=== PATIENT | male | born 1950 | race Caucasian/White ===

== ENCOUNTER → 2020-11-02 13:50 | Outpatient (BNVA) | payer MEDICARE, OTHER, SELFPAY | PROVIDERS: Family Provider Nurse Practitioner Family; PCP Nurse Practitioner Family; Visit Provider Nurse Practitioner Family | DX: Z20.828 Contact with and (suspected) exposure to other viral communicable diseases (principal) | CPT/HCPCS: 87635 ==

== ENCOUNTER 2022-02-05 12:02 | Outpatient (CLI) | payer OTHER, SELFPAY ==
--- NOTE | 2022-02-05 12:46 | CT_ITS ---
WS: [id number] CT ABDOMEN AND PELVIS WITH CONTRAST HISTORY: ELEVATED PSA LEVEL TECHNIQUE: Imaging performed of the abdomen and pelvis with IV contrast. Single phase imaging of the abdomen. Coronal and sagittal reformats are submitted. All CT scans at [facility] use at [address] one of these dose optimization techniques: automated exposure control; mA and/or kV adjustment per patient size (includes targeted exams where dose is matched to clinical indication); or iterative re construction. IV CONTRAST: Omnipaque 300; 95 mL IV. Oral contrast: Yes. DLP: 1178.99 mGy.cm COMPARISON: 06/27/2011 Lower thorax: Peripheral pulmonary fibrotic changes at the lung bases. Early changes of mild honeycom feliciano are noted at the RIGHT lung base. Heart is normal size. Small hiatal hernia. Liver/biliary system: Normal size with no intrahepatic dilatation. Gallbladder: Normal. No gallstones or wall thickening. No pericholecystic fluid. Pancreas: Normal size pancreas and pancreatic duct. No adjacent inflammation. Spleen: Normal size spleen. No mass or infarct. Adrenal glands: Normal. Right kidney: Normal size RIGHT kidney. 3 mm cortical hypodensity in the mid kidney. This is too smal l to characterize. No obstruction. Left kidney: Normal. Aorta: Mild atherosclerosis with no aneurysm. 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 Root measures 11 mm. This was probably some on the prior study from 2010 but better seen today due to the IV contrast. Celiac axis is patent. No rmal SMA a. Normal renal arteries. Lymphadenopathy: None. Free fluid: None. GI tract: Normally distended stomach. No small bowel obstruction. Mild diffuse constipation. The appe ndix is normal. Abdominal wall: Fat containing umbilical hernia. Pelvis: Urinary bladder is moderately distended. Prostate gland is enlarged and heterogeneous and lob ulated encroaching into the urinary bladder. Prostate extends over length of 5.[address] 6.1 x 5.7 cm. There is contiguous enlargement also into the adjacent seminal vesicles. There is m ild thickening along the posterior urinary bladder wall which may be the prostate gland encroaching i nto the bladder. No adjacent lymph nodes. Bones: Unremarkable. CT/CT abdomen pelvis w con* [id number] IMPRESSION: 1. Enlarged heterogeneous prostate gland with extension into the urinary bladd er and seminal vesicles. Prostate measures 6.1 x 5.7 cm and extends over length of 5.7 cm. 2. Normal appendix. 3. Pulmonary fibrosis with honeycombing at the lung bases. 4. Mild aneurysmal dilatation proximal celiac axis. Stable since 2010. 5. No adenopathy or ascites.
[2022-02-05] MEDS: iohexol 300 mg/mL 50 mL Btl PO (12:58)
[2022-02-05] MEDS: iohexol 300 mg/mL 100 mL Btl IV (14:18)
== END 2022-02-05 12:03 | disposition home or self-care (01) ==
LOC: RAD 12:06
PROVIDERS: PCP Nurse Practitioner Family; Visit Provider Nurse Practitioner
DX: Z01.89 Encounter for other specified special examinations (principal); R97.20 Elevated prostate specific antigen [PSA]; N40.0 Benign prostatic hyperplasia without lower urinary tract symptoms; J84.10 Pulmonary fibrosis, unspecified
CPT/HCPCS: 74177

== ENCOUNTER 2022-03-15 09:00 | Outpatient (CLI) | payer OTHER, SELFPAY ==
--- NOTE | 2022-03-15 09:31 | NM_ITS ---
WS: [id number] NUCLEAR MEDICINE WHOLE BODY BONE SCAN HISTORY: PROSTATE CANCER/ PSA ELEVATION COMPARISON: Thoracic spine radiographs. TECHNIQUE: The patient was injected with 24.3 mCi of Technetium 99m HDP and serial whole-body scintig billy have been performed with anterior and posterior images. Focal area of moderately increased uptake in the posterior medial RIGHT 10th rib. There is additional very slight increased uptake within what is probably the seventh rib posterior medial and the sevent h vertebral body. No additional rib or spine lesions. Mild osteoarthritic changes at the shoulder joints, AC joints, elbow joints and RIGHT foot. Normal so ft tissue uptake. Kidneys are both identified. NM/NM bone scan whole body* [id number] IMPRESSION: 1. There is focal uptake within the RIGHT posterior medial seventh and 10th ri bs and within the seventh vertebral body. Suspicious for prostate metastatic di sease. No abnormality could be identified on the radiograph of the thoracic spi ne obtained on the same day. 2. Normal soft tissue and renal uptake.
--- NOTE | 2022-03-15 11:27 | XR_ITS ---
WS: [id number] THORACIC SPINE TECHNIQUE: AP and lateral views are performed. HISTORY: BONE SCAN COMPARISON, INCLUDE SOME OF THE RIBS COMPARISON: Review bone scan 03/15/2022. Diffuse osteopenia. No destructive bone lesions within the thoracic spine. No rib lesions are identif ied on this examination. There is severe bilateral pulmonary fibrosis with loss of lung volume. XR/XR thoracic spine 2V [id number] IMPRESSION: Osseous abnormalities seen on the recent bone scan are not apparent by radiogra ph.
== END 2022-03-15 09:01 | disposition home or self-care (01) ==
PROVIDERS: PCP Nurse Practitioner Family; Visit Provider Registered Nurse
DX: C61 Malignant neoplasm of prostate (principal)
CPT/HCPCS: 72070; 78306; A9561

== ENCOUNTER 2022-07-18 15:34 | Outpatient (CLI) | payer OTHER, SELFPAY ==
--- NOTE | 2022-07-18 15:42 | CT_ITS ---
WS: [id number] CT HEAD NONCONTRAST HISTORY: DOUBLE VISION/BLURRY VISION TECHNIQUE: Contiguous axial imaging performed through the brain in 2.5 mm imaging. Bone and soft tiss ue windows. Sagittal and coronal reformats reviewed. All CT scans at [facility] use at least one of these dose optimization techniques: automated exposure control; mA and/or kV adjustment per pa tient size (includes targeted exams where dose is matched to clinical indication); or iterative recon struction. DLP: 1142.53 mGy.cm COMPARISON: 10/08/2019 No acute intracranial hemorrhage, midline shift or mass effect. Mild atrophy and small vessel ischemic disease. Ventricles: Normal size with no hydrocephalus. No inferior displacement of cerebellar tonsils. Paranasal sinuses: As visualized are clear. Mastoid air cells: Well pneumatized. Calvarium and scalp: Skull is intact with no soft tissue edema or swelling. Atherosclerotic plaque through the intracranial carotid arteries. CT/CT head wo con* [id number] IMPRESSION: 1. Mild atrophy and small vessel ischemic disease. 2. No intracranial hemorrhage or mass effect. 3. Mild atherosclerotic changes in the intracranial carotid arteries.
== END 2022-07-18 15:35 | disposition home or self-care (01) ==
PROVIDERS: PCP Nurse Practitioner; Visit Provider Nurse Practitioner
DX: G31.9 Degenerative disease of nervous system, unspecified (principal); I65.23 Occlusion and stenosis of bilateral carotid arteries
CPT/HCPCS: 70450

== ENCOUNTER 2022-07-24 13:33 | Oncology outpatient (recurring) (ONCR) | payer OTHER, SELFPAY | END 2022-08-09 23:59 | disposition home or self-care (01) | PROVIDERS: PCP Nurse Practitioner; Visit Provider Internal Medicine Hematology & Oncology | DX: C61 Malignant neoplasm of prostate (principal); Z87.891 Personal history of nicotine dependence | CPT/HCPCS: 99204 ==

== ENCOUNTER 2022-08-28 12:46 | Oncology outpatient (recurring) (ONCR) | payer OTHER, SELFPAY ==
[2022-08-28 13:03] LABS: Basophils # 0.1 10^3/uL (0.0-0.1); Basophils % 0.6 %; Eosinophils # 0.1 10^3/uL (0.0-0.8); Eosinophils % 1.6 %; Hematocrit 45.9 % (42.0-52.0); Hemoglobin 15.7 g/dL (11.7-16.6); Lymphocytes # 2.5 10^3/uL (0.8-4.8); Lymphocytes % 27.7 %; Mean Corpuscular HGB Conc 34.2 g/dL (30.0-36.0); Mean Corpuscular Hemoglobin 30.7 pg (28.0-34.0); Mean Corpuscular Volume 89.8 fl (80-94); Mean Platelet Volume 9.4 fL (7.4-10.4); Monocytes # 0.5 10^3/uL (0.2-0.9); Monocytes % 5.2 %; Neutrophils # 5.81 10^3/uL (1.8-7.7); Neutrophils % 64.6 %; Nucleated Red Blood Cells % 0 %; Platelet Count 249 10^3/cmm (130-400); Red Blood Count 5.11 10^6/uL (4.1-5.3); Red Cell Distribution Width 11.9 % (12.1-15.1)
[2022-08-28 13:41] LABS: Albumin Level 4.1 g/dL (3.5-5.2); Anion Gap 15.4 (5-19); Blood Urea Nitrogen 19 mg/dL (8-23); Calcium 9.6 mg/dL (8.5-10.5); Carbon Dioxide 27 mmol/L (22-29); Osmolality Calculated 288 mOsm/kg (285-295); Potassium 4.4 mmol/L (3.5-5.1); Testosterone Total 295.7 ng/dL (193-740); Total Bilirubin 0.4 mg/dL (0.15-1.2); Total Protein 8.1 g/dL (6.6-8.7)
[2022-08-28 14:02] LABS: Alanine Aminotransferase < 5 U/L (0-41)
[2022-08-28 14:03] LABS: Alkaline Phosphatase 146 U/L (40-130); Aspartate Amino Transferase 13 U/L (0-40); Chloride 93 mmol/L (98-107); Glucose 352 mg/dL (65-115); Sodium 131 mmol/L (136-145)
== END 2022-09-09 23:59 | disposition home or self-care (01) ==
PROVIDERS: PCP Nurse Practitioner; Visit Provider Internal Medicine Hematology & Oncology
DX: C61 Malignant neoplasm of prostate (principal); J43.9 Emphysema, unspecified; C78.6 Secondary malignant neoplasm of retroperitoneum and peritoneum; C79.51 Secondary malignant neoplasm of bone; C78.7 Secondary malignant neoplasm of liver and intrahepatic bile duct; J84.10 Pulmonary fibrosis, unspecified; R59.0 Localized enlarged lymph nodes; Z79.52 Long term (current) use of systemic steroids; Z79.818 Long term (current) use of other agents affecting estrogen receptors and estrogen levels; Z79.899 Other long term (current) drug therapy; Z87.891 Personal history of nicotine dependence
CPT/HCPCS: 36415; 80053; 84153; 84403; 85025; 99214

== ENCOUNTER → 2022-09-10 10:43 | Outpatient (BNVA) | payer OTHER, SELFPAY | PROVIDERS: PCP Nurse Practitioner; Visit Provider Podiatrist Foot & Ankle Surgery | DX: E11.621 Type 2 diabetes mellitus with foot ulcer (principal); E11.8 Type 2 diabetes mellitus with unspecified complications; L97.524 Non-pressure chronic ulcer of other part of left foot with necrosis of bone; E11.42 Type 2 diabetes mellitus with diabetic polyneuropathy; L03.116 Cellulitis of left lower limb; S91.109A Unspecified open wound of unspecified toe(s) without damage to nail, initial encounter; X58.XXXA Exposure to other specified factors, initial encounter | CPT/HCPCS: 11044; 73630; 87070; 87075; 87077; 87186; 87205; 99205 ==

== ENCOUNTER 2022-09-10 11:41 | Inpatient (IN) | payer OTHER, MEDICARE, SELFPAY ==
[2022-09-10] VITALS (40 sets, daily range): BP systolic 89–148; BP diastolic 48–85; PULSE 90–150; RESP 7–29; TEMP 36.6–36.8; O2SAT 92–98; BMI 23.5
--- NOTE | 2022-09-10 12:54 | ECG_ITS ---
[facility] Test Date: 2022-09-10 Pat Name: Cristobal Rincon Department: Room: Gender: Male Material Handler: : [id number] Requested By: Mars Ashley Order Number: [id number] Guevara MD: Georgette Cochran M.D. Measurements Intervals [place] Rate: 130 P: 44 [place]: 172 QRS: 99 QRSD: 85 T: -5 QT: 284 QTc: 419 Interpretive Statements SINUS TACHYCARDIA BORDERLINE RIGHT AXIS DEVIATION [QRS AXIS > 90] NONSPECIFIC T-WAVE ABNORMALITY No previous ECG available for comparison Electronically Signed On 09-10-2022 21:46:08 CDT by Georgette Cochran M.D. [id number]
--- NOTE | 2022-09-10 13:03 | P.ANESASSM_ITS ---
Pre-Anesthetic Assessment Height/Weight: Height 1.85 m Weight 80.739 kg Temp Pulse Resp BP Pulse Ox O2 Del Method 97.9 F 150 H 20 H 148/85 94 09/10/22 11:52 09/10/22 11:52 09/10/22 11:52 09/10/22 11:52 09/10/22 11:52 09/10/22 11:52 Operation Date: 09/10/22 18:00 Proposed Procedures p Amputation Toe/s(Left) - Oswald Perkins DPM Familial anesthetic complications: NOne Was Beta Sanam taken within 24 hours: N/A Was Clonidine taken within 24 hours: N/A Last intake: Sausage McMuffin at 1000 Social No alcohol and No tobacco Exam alert, oriented x 3, clear to auscultation bilaterally and regular rate & rhythm Airway Mallampati: Class II Dentition: full Pulmonary hx pneumonia X2 Metabolic Diabetes Mellitus and Thyroid Disease [facility] [place] Prostate cancer Anesthetic Plan ASA status: 3 Anesthesia: MAC Risk of > 500 ml blood loss (7ml/kg in children): No Medications/Allergies Home Medications Medication Instructions Recorded Confirmed Last Taken Type levothyroxine 200 mcg capsule 200 mcg PO DAILY Jardiance 07/24/22 09/10/22 Unknown History abiraterone 250 mg tablet 250 mg PO DAILY #30 tabs 08/28/22 09/10/22 Unknown Rx empagliflozin 25 mg tablet 25 mg PO DAILY 08/28/22 09/10/22 Unknown History prednisone 5 mg tablet 5 mg PO BID #60 tabs 08/28/22 09/10/22 Unknown Rx Allergies Allergy/AdvReac Type Severity Reaction Status Date / Time No Known Allergies Allergy Verified 09/10/22 11:04 [facility] Anesthesia Medical History Prostate cancer Family History Mother Hypertension Father Dementia CAD (coronary artery disease) Cancer Prostate Hyperlipidemia Denies family history of Diabetes Clotting disorder Psychiatric illness Chronic kidney disease (CKD) Suicide Anesthesia complication Bleeding disorder Lung disease Stroke Social History Smoking and tobacco status: former smoker (smoked x 10 years) Alcohol intake: never Adopted: No Caregiver/support person: No Data Anesthesia Cardiac Studies: No Data to Display
--- NOTE | 2022-09-10 13:15 | XRR_ITS ---
PROCEDURE INFORMATION: Exam: XR Chest Exam date and time: 09/10/2022 1:21 PM Age: 72 years old Clinical indication: Shortness of breath; Additional info: Dyspnea TECHNIQUE: Imaging protocol: Radiologic exam of the chest. Views: 1 view. COMPARISON: NM bone scan whole body* [id number] 03/15/2022 9:31 AM FINDINGS: Lungs: Chronic appearing bilateral peripheral interstitial lung disease. Pleural spaces: No pleural effusion or pneumothorax. Heart/Mediastinum: The cardiac silhouette is not enlarged. The mediastinal contours are normal. Diaphragm: Mildly elevated right hemidiaphragm. Bones/joints: No acute osseous abnormality. XR/XR chest 1V portable [id number] IMPRESSION: Chronic appearing interstitial lung disease.
[2022-09-10 13:21] LABS: Basophils % 0.2 %; Hematocrit 41.2 % (42.0-52.0); Hemoglobin 14.2 g/dL (11.7-16.6); Lymphocytes # 0.5 10^3/uL (0.8-4.8); Lymphocytes % 3.9 %; Mean Corpuscular HGB Conc 34.5 g/dL (30.0-36.0); Mean Corpuscular Hemoglobin 30.3 pg (28.0-34.0); Mean Corpuscular Volume 87.8 fl (80-94); Mean Platelet Volume 10.7 fL (7.4-10.4); Monocytes # 0.5 10^3/uL (0.2-0.9); Monocytes % 4.3 %; Neutrophils # 11.56 10^3/uL (1.8-7.7); Neutrophils % 91.3 %; Nucleated Red Blood Cells % 0 %; Platelet Count 235 10^3/cmm (130-400); Red Blood Count 4.69 10^6/uL (4.1-5.3); Red Cell Distribution Width 12.6 % (12.1-15.1); White Blood Count 12.7 10^3/uL (4.0-10.0)
[2022-09-10 13:28] LABS: Erythrocyte Sedimentation Rate 33 mm/hr (0-10)
[2022-09-10 13:42] LABS: INR 1.22 (0.8-1.2)
[2022-09-10 13:43] LABS: Alanine Aminotransferase 12 U/L (0-41); Albumin Level 3.6 g/dL (3.5-5.2); Alkaline Phosphatase 147 U/L (40-130); Anion Gap 22.5 (5-19); Aspartate Amino Transferase 16 U/L (0-40); Blood Urea Nitrogen 20 mg/dL (8-23); Calcium 9.7 mg/dL (8.5-10.5); Carbon Dioxide 21 mmol/L (22-29); Chloride 91 mmol/L (98-107); Globulin 4.7 g/dL (1.3-4.6); Glucose 233 mg/dL (65-115); Osmolality Calculated 280 mOsm/kg (285-295); Potassium 4.5 mmol/L (3.5-5.1); Sodium 130 mmol/L (136-145); Total Bilirubin 0.9 mg/dL (0.15-1.2); Total Protein 8.3 g/dL (6.6-8.7)
[2022-09-10 13:43] LABS: Partial Thromboplastin Time 30.4 SECONDS (23.9-36.7)
[2022-09-10 14:01] LABS: Lactic Sepsis W/Reflex 2.6 mmol/L (0.5-2.2)
[2022-09-10] MEDS: SODIUM CHLORIDE 0.9% 2422.17 ML IV (14:01)
[2022-09-10] MEDS: vancomycin 1,000 MG in sodium chloride 0.9% 250 ML 250 MG IV (14:02)
--- NOTE | 2022-09-10 14:09 | W.ED.EXTPRO ---
HPI - Extremity Problem General: Chief complaint: Extremity Problem,Nontraumatic Stated complaint: Sent by , infection of great toe Time Seen by Provider: 09/10/22 12:36 Source: patient Mode of arrival: ambulatory History of Present Illness: 72-year-old male who was directed to the emergency room by Dr. Perkins at the podiatry clinic. He was seen for the first time today for a diabetic foot ulcer with a severely infected left great toe. On x-ray there is significant osteomyelitic damage of the distal phalanx at the DIP joint. Patient is tachycardic on arrival he denies any fever. The sore in his foot began within the last week. Dr. Perkins came and talk to me about this patient prior to the patient's arrival in the department stated that he plan to do an amputation of the left great toe this evening because the patient ate around 11:00 patient endorses the last meal time again to me. He has no known coronary artery disease he does have severe chronic respiratory disease is fibrotic lungs he relates it to being due to having pneumonia when he was younger twice. He has significant clubbing noted just on bedside visual exam. MD Complaint: extremity swelling Onset (ago): day(s) Pain Consistency: constant Location: left (Great toe) and toe Quality: aching Radiation: none Relieving factors: nothing Exacerbating factors: nothing Associated symptoms: Deny arthralgias, chest pain, fever(s), myalgias, rash or short of breath Review of Systems Const: Denies: fever(s) or chills ENMT: Denies: throat pain, ear or mastoid pain, nasal discharge or nasal congestion Card: Denies: chest pain, palpitations or irregular heart rhythm Resp: Denies: dyspnea, productive cough or non-productive cough GI: Denies: abdominal pain, nausea, vomiting, hematemesis, coffee ground emesis, diarrhea, constipation, bloating, hematochezia or melena : Denies: flank pain, dysuria, urinary frequency or urinary urgency Skin/Breast: Denies: rash PFSH ED PFSH: Medical History (Updated 09/10/22 @ 14:17 by Sergo Oshea DO) Diabetes Fatty liver Interstitial lung disease Prostate cancer Prostate cancer Surgical History (Updated 09/10/22 @ 14:12 by Sergo Oshea DO) Hx of tonsillectomy 1979 Family History Mother Hypertension Father Dementia CAD (coronary artery disease) Cancer Prostate Hyperlipidemia Denies family history of Diabetes Clotting disorder Psychiatric illness Chronic kidney disease (CKD) Suicide Anesthesia complication Bleeding disorder Lung disease Stroke Social History Smoking and tobacco status: former smoker (smoked x 10 years) Alcohol intake: never Adopted: No Caregiver/support person: No Physical Exam Const: GENERAL APPEARANCE: cooperative and comfortable ORIENTATION/CONSCIOUSNESS: Yes awake, Yes oriented to person, Yes oriented to place and Yes oriented to time HENMT: COMMON NORMALS: normocephalic, atraumatic and hearing grossly normal bilaterally HEAD & SCALP: normocephalic and atraumatic Resp: COMMON NORMALS: normal respiratory effort, No retractions, No use of accessory muscles and clear to auscultation bilaterally AUSCULTATION: clear to auscultation bilaterally Cardio: COMMON NORMALS: regular rate, regular rhythm and No murmurs present (Cardio) RATE: regular rate RHYTHM: regular rhythm GI: COMMON NORMALS: Soft to palpation and No hepatosplenomegaly present AUSCULTATION: Yes normoactive bowel sounds PALPATION: Yes Soft to palpation, No Tenderness to palpation present (GI), No Guarding due to palpation present (GI) and Yes No hepatosplenomegaly present Extremity: OTHER: Great toe inflamed and swollen very erythematous discolored gangrenous changes on the plantar aspect of the toe. There is scant drainage. There is lymphangitic erythematous spread to the forefoot overlying the first and second metatarsals and proximally up the anterior tibia. Neuro: SENSORIUM/ORIENTATION: Yes oriented to person, Yes oriented to place and Yes oriented to time Skin: COMMON NORMALS: no rashes or lesions noted GENERAL SKIN EXAM: no rashes or lesions noted Course Vital Signs: Vital signs: Vital Signs Temperature 97.9 F 09/10/22 11:52 Pulse Rate 150 H 09/10/22 11:52 Respiratory Rate 20 H 09/10/22 11:52 Blood Pressure 148/85 09/10/22 11:52 Pulse Oximetry 94 09/10/22 11:52 Oxygen Delivery Me thod 09/10/22 11:52 MDM - Extremity (Nontraumatic) Medical Decision Making X-ray shows osteomyelitic destruction of the great toe at the proximal aspect of the distal phalanx. Does not appear to be any subcuticular gas on the plain x-ray. COVID is somewhat difficult to tell. Radiology is not formally read the x-ray at this point. Patient does appear to be mildly septic he is tachycardic with a heart rate of 150s on arrival. He is given a fluid bolus started on vancomycin cultures been done he will be kept n.p.o. admitted to the ICU due to his tachycardia. Dr. Perkins is planning on doing surgery tentative discussed with Dr. Hills who will see the patient in the ICU and be the admitting. Medical Records I reviewed the patient's medical records. Lab Data I reviewed the patient's lab results. : 09/10/22 13:15 09/10/22 13:15 Radiology Impressions Chest X-Ray 09/10/22 13:15 IMPRESSION: Chronic appearing interstitial lung disease. Laboratory Results WBC 12.7 10^3/uL (4.0-10.0) H 09/10/22 13:15 RBC 4.69 10^6/uL (4.1-5.3) 09/10/22 13:15 Hgb 14.2 g/dL (11.7-16.6) 09/10/22 13:15 Hct 41.2 % (42.0-52.0) L 09/10/22 13:15 MCV 87.8 fl (80-94) 09/10/22 13:15 MCH 30.3 pg (28.0-34.0) 09/10/22 13:15 MCHC 34.5 g/dL (30.0-36.0) 09/10/22 13:15 RDW 12.6 % (12.1-15.1) 09/10/22 13:15 Plt Count 235 10^3/cmm (130-400) 09/10/22 13:15 MPV 10.7 fL (7.4-10.4) H 09/10/22 13:15 Neut % (Auto) 91.3 % 09/10/22 13:15 Lymph % (Auto) 3.9 % 09/10/22 13:15 Sawyer % (Auto) 4.3 % 09/10/22 13:15 Eos % (Auto) 0.0 % 09/10/22 13:15 Baso % (Auto) 0.2 % 09/10/22 13:15 Neut # (Auto) 11.56 10^3/uL (1.8-7.7) H 09/10/22 13:15 Lymph # (Auto) 0.5 10^3/uL (0.8-4.8) L 09/10/22 13:15 Sawyer # (Auto) 0.5 10^3/uL (0.2-0.9) 09/10/22 13:15 Eos # (Auto) 0.0 10^3/uL (0.0-0.8) 09/10/22 13:15 Baso # (Auto) 0.0 10^3/uL (0.0-0.1) 09/10/22 13:15 Nucleated RBC % (auto) 0 % 09/10/22 13:15 Nucleated RBCs # 0.0 /100WBC 09/10/22 13:15 ESR 33 mm/hr (0-10) H 09/10/22 13:15 PT 15.70 SECONDS (12.1-14.9) H 09/10/22 13:20 INR 1.22 (0.8-1.2) H 09/10/22 13:20 APTT 30.4 SECONDS (23.9-36.7) 09/10/22 13:20 Sodium 130 mmol/L (136-145) L 09/10/22 13:15 Potassium 4.5 mmol/L (3.5-5.1) 09/10/22 13:15 Chloride 91 mmol/L (98-107) L 09/10/22 13:15 Carbon Dioxide 21 mmol/L (22-29) L 09/10/22 13:15 Anion Gap 22.5 (5-19) H 09/10/22 13:15 BUN 20 mg/dL (8-23) 09/10/22 13:15 Creatinine 1.2 mg/dL (0.7-1.2) 09/10/22 13:15 GFR Calculation Not Reportable 09/10/22 13:15 Glucose 233 mg/dL (65-115) H 09/10/22 13:15 Calculated Osmolality 280 mOsm/kg (285-295) L 09/10/22 13:15 Lactic Acid 2.6 mmol/L (0.5-2.2) H 09/10/22 13:15 Calcium 9.7 mg/dL (8.5-10.5) 09/10/22 13:15 Total Bilirubin 0.9 mg/dL (0.15-1.2) 09/10/22 13:15 AST 16 U/L (0-40) 09/10/22 13:15 ALT 12 U/L (0-41) 09/10/22 13:15 Alkaline Phosphatase 147 U/L (40-130) H 09/10/22 13:15 C-Reactive Protein 257.0 mg/L (0.0-4.9) H 09/10/22 13:15 Total Protein 8.3 g/dL (6.6-8.7) 09/10/22 13:15 Albumin 3.6 g/dL (3.5-5.2) 09/10/22 13:15 Globulin 4.7 g/dL (1.3-4.6) H 09/10/22 13:15 Discharge Plan Discharge Patient Disposition: Admitted As Inpatient Clinical Impression: Non-pressure chronic ulcer of other part of left foot with necrosis of bone, Prostate cancer, Diabetic peripheral neuropathy associated with type 2 diabetes mellitus, Cellulitis of left foot, Osteomyelitis, Sepsis Condition: Stable Prescriptions: No Action levothyroxine 200 mcg capsule 200 mcg PO DAILY empagliflozin 25 mg tablet 25 mg PO DAILY Rx Instructions: Jariance abiraterone 250 mg tablet 250 mg PO DAILY Qty: 30 0RF Rx Instructions: must be taken on empty stomach, at least 1 hr before or 2 hrs after a meal/food prednisone 5 mg tablet 5 mg PO BID Qty: 60 0RF Referrals: Tomasa Brice FNP [Primary Care Provider] - Coding Level of Care Code ED Director Of Recreation Therapy for Shantell Pepe
[2022-09-10 15:07] LABS: Reflex Lactate Order REFLEX LACTIC ORDERD
[2022-09-10] MEDS: sodium chloride 0.9% 1,000 ML 75 ML IV (16:19)
--- NOTE | 2022-09-10 16:37 | P.HP_ITS ---
Providers/Chief Complaint Admitting Physician: Jose Jones MD Primary Care Provider: JOHANNA Westfall Chief Complaint: Sent by , infection of great toe History of Present Illness Cristobal Rincon is a 72 year old male with past medical history of type 2 diabetes mellitus, prostate cancer who was sent into the ER today to the podiatry office. After the patient history developed a callus on the right great toe around 4 months ago which has been getting worse gradually over a period of time but over the last 1 week has become more erythematous, painful with foul-smelling discharge. Denied any known fever but complaining of chills at home. At podiatry office there was a concern for possible osteomyelitis hence he was sent into the ER. ER course: In the ER he was found to have a heart rate of 150s for which she received 2-1/2 L of fluid as per sepsis protocol, IV vancomycin. After that he was admitted to ICU. On my examinations while seen in ICU patient's heart rate is running in 150s beats per minute, blood pressure 145/70 saturating well on room air, awake and alert. Complaining of toe pain but denies any other nausea vomiting, headache, dizziness, chest pain. Review of Systems General: Reports: 10 or more systems reviewed and unremarkable except in HPI and below Const: Denies: fever(s), chills, body aches, change in appetite, change in weight, malaise, night sweats, diaphoresis, change in sleep pattern, daytime sleepiness or snoring Eyes: Denies: change in vision, blurry vision, photophobia, eye discomfort or eye discharge ENMT: Denies: throat pain, enlarged tonsils, hoarseness, mouth pain, oral sores, dry mouth, tinnitus, nasal congestion or post nasal drip Card: Denies: chest pain, palpitations, irregular heart rhythm, edema, sw elling of feet/ankles, lightheadedness, syncope, pre-syncope, dyspnea on exertion, orthopnea, leg pain with exertion or acrocyanosis Resp: Denies: dyspnea, productive cough, non-productive cough, wheezing, stridor, pain on inspiration, change in phlegm color, hemoptysis or chest congestion GI: Denies: abdominal pain, nausea, vomiting, hematemesis, coffee ground emesis, dysphagia, heartburn, diarrhea, constipation, bloating, GI cramping, change in bowel habits, pain on defecation, hematochezia or melena : Denies: flank pain, difficulty urinating, dysuria, urinary frequency, urinary urgency, urinary hesitancy, urinary dribbling, difficulty starting urination, change in urine stream, nocturia or hematuria Musc: Denies: neck pain, back pain, extremity pain, joint pain, joint swelling, joint redness, joint stiffness or limited range of motion Neuro: Denies: headache(s), numbness in extremities, weakness in extremities, sensory changes, lack of coordination, difficulty walking, frequent falls, dizziness, vertigo, confusion, Slurred speech present, difficulty communicating thoughts or seizure-like activity Psych: Denies: anxiety, depression, mood swings, panic attacks, hopelessness or irritability Endo: Denies: polyuria, polydipsia, tired all the time, cold intolerance, exce ssive sweating, flushing or heat intolerance Jason/Lymph: Denies: easy bruising or easy bleeding All/Imm: Denies: tongue swelling, facial swelling or acute wheezing Medications/Allergies Home Medications Medication Instructions Recorded Confirmed Last Taken Type levothyroxine 200 mcg capsule 200 mcg PO DAILY Jardiance 07/24/22 09/10/22 09/10/22 History abiraterone 250 mg tablet 250 mg PO DAILY #30 tabs 08/28/22 09/10/22 Unknown Rx empagliflozin 25 mg tablet 25 mg PO DAILY 08/28/22 09/10/22 09/10/22 History prednisone 5 mg tablet 5 mg PO BID #60 tabs 08/28/22 09/10/22 Unknown Rx Allergies Allergy/AdvReac Type Severity Reaction Status Date / Time No Known Allergies Allergy Verified 09/10/22 11:04 PFSH Acute PFSH: Medical History (Updated 09/10/22 @ 16:42 by Jose Jones MD) Diabetes Diabetic peripheral neuropathy associated with type 2 diabetes mellitus Fatty liver Interstitial lung disease Non-pressure chronic ulcer of other part of left foot with necrosis of bone Prostate cancer Prostate cancer Surgical History (Updated 09/10/22 @ 14:12 by Sergo Oshea DO) Hx of tonsillectomy 1979 Family History Mother Hypertension Father Dementia CAD (coronary artery disease) Cancer Prostate Hyperlipidemia Denies family history of Diabetes Clotting disorder Psychiatric illness Chronic kidney disease (CKD) Suicide Anesthesia complication Bleeding disorder Lung disease Stroke Social History Smoking and tobacco status: former smoker (smoked x 10 years) Alcohol intake: never Adopted: No Caregiver/support person: No Vitals/I&O/Wt Last Vital Signs Temp 97.9 F 09/10/22 11:52 Pulse 101 H 09/10/22 15:58 Resp 16 09/10/22 15:58 BP 145/74 09/10/22 15:58 Pulse Ox 98 09/10/22 15:58 O2 Del Method 09/10/22 16:28 09/10/22 09/10/22 09/10/22 06:59 14:59 22:59 Intake Total 2672.17 / 2672.17 Balance 2672.17 / 2672.17 Weight last 48 hrs Weight 80.739 kg Weight 80.739 kg Physical Exam Narrative: General: No acute distress, AO x3 HEENT: PERRLA, pupils bilaterally equal and reactive Chest: Normal vesicular breath sounds, no added sounds, equal good air entry bilaterally CVS: S1-S2 regular, no murmurs, no tachycardia, no gallops, no rubs Abdomen: Soft, nontender, no organomegaly, bowel sounds present Neuro: No focal deficits, no facial deformity, AO x3, power 5/5 in all limbs Extremities: Full-thickness wound at plantar medial aspect of left great toe with probe to bone with erythema going up to mid foot, great toe is erythematous, swollen Data : 09/10/22 13:15 09/10/22 13:15 Micro: Microbiology 09/10/22 13:56 Blood Culture - Preliminary Blood SPECIMEN COLLECTED 09/10/22 13:51 Blood Culture - Preliminary Blood SPECIMEN COLLECTED A&P Assessment and plan (1) Sepsis: Secondary to cellulitis and osteomyelitis of foot and great toe. Ruled in for tachycardia, elevated lactate and leukocytosis on admission. Patient also found to have mild renal dysfunction with metabolic acidosis on admission Keep saturation over 90, mean arterial pressure over 65. Patient already received sepsis fluid bolus in the ER. For now continue with normal saline at 75 cc/h. Qualifiers: Sepsis type: sepsis due to unspecified organism Sepsis acute organ dysfunction status: without acute organ dysfunction Qualified Code(s): A41.9 - Sepsis, unspecified organism (2) Osteomyelitis: Followed up with manager process excellence as an outpatient. Plan for amputation in the evening today. For now check MRSA swab, blood culture. ESR elevated, CRP elevated. X-ray consistent with possible osteomyelitis of the left great toe. For now start on empiric antibiotics with vancomycin and Zosyn. Will de- escalate as per culture results. If bony edges are clean can plan to continue antibiotics for 24 hours post 4. Qualifiers: Osteomyelitis type: other acute Osteomyelitis location: other site Qualified Code(s): M86.18 - Other acute osteomyelitis, other site (3) Cellulitis of left foot: (4) Diabetes: Carb consistent diet once able to eat. Insulin sliding scale low-dose protocol. Qualifiers: Diabetes mellitus type: type 2 Diabetes mellitus ocean transportation intermediary insulin use: without ocean transportation intermediary use Diabetes mellitus complication status: with neurologic complications Diabetes mellitus complication detail: with polyneuropathy Qualified Code(s): E11.42 - Type 2 diabetes mellitus with diabetic polyneuropathy Plan Analgesia: Morphine as needed 1 mg per 4 hours Glycemic control: Insulin sliding scale, check A1c, Nutrition: Carb consistent diet CODE STATUS: Full code PUD prophylaxis: Famotidine for PUD prophylaxis DVT prophylaxis: SCDs on right leg for now. Discharge planning: Home with home health as per weightbearing recommendations from podiatry post OR Admit to CSU level. This documentation was created by [employer] lining brusher software. Every effort was made to ensure accuracy of lining brusher. Any obvious errors or omissions should be clarified with the author of the document. Attestations Medical Necessity Statement*: Admission for more than 2 midnights for management of sepsis of secondary to left great toe osteomyelitis, cellulitis Time Spent in Patient Care: Greater than 35 minutes Coding Level of Care Code Acute Flooring Machine Operator for [facility] Fwd Diagnoses Sepsis A41.9 Sepsis type: sepsis due to unspecified organism Sepsis acute organ dysfunction status: without acute organ dysfunction Osteomyelitis M86.18 Osteomyelitis type: other acute Osteomyelitis location: other site Cellulitis of left foot L03.116 Diabetes E11.42 Diabetes mellitus type: type 2 Diabetes mellitus ocean transportation intermediary insulin use: without retirement use Diabetes mellitus complication status: with neurologic complications Diabetes mellitus complication detail: with polyneuropathy
[2022-09-10] MEDS: famotidine 20 mg/2 mL INJ IVP (16:58)
[2022-09-10] MEDS: piperacillin-tazobactam 3.375 GM in sodium chloride 0.9% (plus) 50 ML IV (16:58)
[2022-09-10 17:16] LABS: Lactic Acid level (Lactate) 1.3 mmol/L (0.5-2.2)
[2022-09-10 17:23] LABS: Add Urine Microscopic? NO; Charge for UA Resulting for Rev
[2022-09-10 17:26] LABS: Procalcitonin 0.96 ng/mL (0-0.5); Thyroid Stimulating Hormone 0.17 uIU/mL (0.27-4.20)
[2022-09-10 17:31] LABS: Bilirubin Urine Neg (Negative); Blood Urine Neg (Negative); Glucose Urine UA 4+ (Normal); Ketones Urine 3+ (Negative); Leukocyte Esterase Urine Negative (Negative); Nitrate Urine Negative (Negative); Protein Urine Neg (Negative); Specific Gravity, Urine 1.015 (1.005-1.030); Urine Appearance Clear (CLEAR); Urine Color Yellow (Yellow); Urobilinogen Urine Norm (Negative); pH Urine 5 (5-7)
--- NOTE | 2022-09-10 17:44 | W.PM.OPSUD ---
Surgery/Procedure H&P Update DATE OF PROCEDURE: September 10, 2022 DATE H&P PERFORMED: 09/10/22 CHANGES TO PREVIOUS DOCUMENTATION: None PRIMARY INDICATION FOR PROCEDURE: Osteomyelitis left great toe, cellulitis, sepsis PLANNED PROCEDURE: Operation Date: 09/10/22 18:00 Proposed Procedures p Amputation Toe/s(Left) - Oswald Perkins DPM
[2022-09-10 17:46] LABS: Glucose Point of Care 162 mg/dL (70-110)
[2022-09-10 17:54] LABS: Folate Level 15.6 ng/mL (4.5-32.2)
--- NOTE | 2022-09-10 17:54 | PM.OP ---
Operative Report Date of procedure: September 10, 2022 Pre-op diagnosis: Osteomyelitis left hallux. Cellulitis left foot. Sepsis secondary to diabetic foot infection. Post-op diagnosis: Same Post-op findings: Devitalized soft tissue and bone left hallux distal phalanx. Procedure done: Left great toe amputation at metatarsal phalangeal joint. Implants: None Specimens removed/disposition: Bone, distal phalanx of the left great toe sent to microbiology for gram stain and culture. Pathology: Left great toe sent to pathology for permanent. Surgeon: Oswald Perkins D.P.M. Apartment Community Assistant Manager: Carin Estimated blood loss: 5 5 IV fluids: 0 Urine output: None Complications: None Findings: Devitalized tissue including bone distal phalanx left great toe. Brief History: 72-year-old male presents with a wound to the left great toe probes directly to bone that is devitalized.? Has cellulitis to the left foot.? Subjective chills and decreased appetite.? Patient is afebrile at 97.9 ?F oral temperature.? Elevated heart rate and elevated respiration. Met sepsis criteria and admitted to ICU. WBC 12.7, ESR 33, CRP 257.0 mg/L. Wound debridement Aerobic and anaerobic wound cultures taken postdebridement X-ray shows osteomyelitis distal phalanx left hallux Patient directed to the emergency department for hospital admission Recommend empiric IV antibiotics Plans for left hallux amputation today with Dr. Perkins Patient to be n.p.o. Reviewed clinical and radiographic as well as laboratory findings recommended amputation for source control of infection. Patient is agreeable and wishes to proceed. I reviewed at length with the patient, the risks, potential complications, benefits, alternatives, expectations, and typical outcomes associated with the surgery. The risks and potential complications were explained in detail, including but not limited to infection, wound dehiscence or soft tissue complications, bleeding and hematoma, chronic edema, neuritis or nerve damage producing numbness or chronic pain, CRPS, failure to relieve pain or worsening pain, thick / painful / unsightly scar, limited motion / stiffness, malposition, delayed union, malunion, or nonunion, fracture, reaction to implants, anesthetic complications, venous thromboembolism, and deformity recurrence. I discussed the notion of no regrets with the patient as it pertains to complications and outcomes. The patient seemed to understand the nature of the proposed care and required convalescence. They asked appropriate questions, answered to their satisfaction. They are aware no guarantees can be made as to a satisfactory outcome and they understand there may be other possible unforeseen complications or outcomes not listed here that will be treated accordingly if they arise. There were no written or implied guarantees given to the patient. They gave informed consent to proceed. Procedure: Under mild sedation the patient was brought to the operating room and remained on the gurney in supine position. A timeout was performed. Anesthesia was then administered by the anesthesia service. Local anesthesia was injected by myself consisting of 30 cc of 1% lidocaine plain in a left Macdonald block fashion. Well-padded pneumatic tourniquet applied to the left high calf. Left lower extremity was then scrubbed, prepped and draped utilizing normal aseptic technique. Left foot was then elevated in the calf and tourniquet was inflated to 250 mmHg. Attention was directed to the left hallux where a full-thickness wound at the plantar medial aspect of the left hallux it probe directly to bone with soft and devitalized, discolored distal phalanx of the left hallux appreciated. There was erythema circumferentially about the left hallux with edema, purulent drainage and proximal lymphangitic streaking with cellulitis to the level of the midfoot. Utilizing a #15 blade full-thickness down to bone a tennis racquet incision was performed circumferentially about the left first metatarsal phalangeal joint which was then disarticulated maintaining a both dorsal and plantar flap for possible delayed closure pending soft tissue improvement on IV antibiotics and need for further potential debridement. The left great toe was passed from the operative field. Distal phalanx bone culture was taken and sent to microbiology for gram stain, culture and sensitivity. Remaining left great toe was sent to pathology as a permanent specimen for gross. The incision was flushed with copious amounts of sterile saline solution. There is still erythema at the skin flaps. Decision was made to leave this open with saline wet-to-dry dressing changes which will be performed 3 times daily and monitor clinical response to empiric IV antibiotics, should he show soft tissue improvement will plan for delayed closure if indicated. Saline wet-to-dry dressing applied along with ABD pad, Kerlix and Coban. Tourniquet was deflated and a prompt hyperemic response was noted to the remaining distal digits of the left foot. Patient tolerated the procedure and anesthesia well and was transferred from the PACU to ICU with vital signs stable and vascular status intact.
--- NOTE | 2022-09-10 17:55 | PC.NURSE ---
1755 patient in care of Surgical staff. Vitals stable at time of transfer of care.
[2022-09-10] MEDS: lidocaine 1% INJ 50 mL 30 ML INJECTION (18:10)
[2022-09-10 18:41] LABS: Potassium, Radom Urine 27 mmol/L; Urine Random Chloride 46 mmol/L; Urine Random Sodium 59 mmol/L
[2022-09-10 18:47] LABS: Iron 15 ug/dL (59-158); Percent Saturation 8.1 % (20-50); Total Iron Binding Capacity 185 mcg/dl; Unsaturated Iron Binding 170 ug/dL (112-347); Vitamin B12 187 pg/mL (232-1245)
[2022-09-10 20:35] LABS: Glucose Point of Care 170 mg/dL (70-110)
[2022-09-10] MEDS: insulin lispro 100 unit/1 mL SUBCUT (20:40)
[2022-09-11] VITALS (16 sets, daily range): BP systolic 99–128; BP diastolic 51–81; PULSE 74–103; RESP 16–28; TEMP 36.6–37.1; O2SAT 93–97
[2022-09-11] MEDS: piperacillin-tazobactam 3.375 GM in sodium chloride 0.9% (plus) 50 ML IV ×3 (00:48→16:17)
[2022-09-11] MEDS: famotidine 20 mg/2 mL INJ IVP ×2 (03:32→16:17)
[2022-09-11] MEDS: sodium chloride 0.9% 1,000 ML 75 ML IV (03:33)
[2022-09-11 04:08] LABS: Basophils % 0.4 %; Eosinophils # 0.1 10^3/uL (0.0-0.8); Eosinophils % 0.8 %; Hematocrit 36.3 % (42.0-52.0); Hemoglobin 11.7 g/dL (11.7-16.6); Lymphocytes # 1.2 10^3/uL (0.8-4.8); Lymphocytes % 16.3 %; Mean Corpuscular HGB Conc 32.2 g/dL (30.0-36.0); Mean Corpuscular Hemoglobin 29.5 pg (28.0-34.0); Mean Corpuscular Volume 91.4 fl (80-94); Mean Platelet Volume 8.8 fL (7.4-10.4); Monocytes # 0.7 10^3/uL (0.2-0.9); Monocytes % 8.9 %; Neutrophils # 5.42 10^3/uL (1.8-7.7); Neutrophils % 73.2 %; Nucleated Red Blood Cells % 0 %; Platelet Count 167 10^3/cmm (130-400); Red Blood Count 3.97 10^6/uL (4.1-5.3); Red Cell Distribution Width 11.9 % (12.1-15.1); White Blood Count 7.4 10^3/uL (4.0-10.0)
[2022-09-11 04:22] LABS: Estmated Average Glucose 229; Hemoglobin A1C 9.6 % (4.0-6.0)
[2022-09-11 05:14] LABS: Alanine Aminotransferase 9 U/L (0-41); Albumin Level 2.8 g/dL (3.5-5.2); Alkaline Phosphatase 101 U/L (40-130); Aspartate Amino Transferase 13 U/L (0-40); Blood Urea Nitrogen 17 mg/dL (8-23); Calcium 8.8 mg/dL (8.5-10.5); Carbon Dioxide 20 mmol/L (22-29); Chloride 100 mmol/L (98-107); Chol HDL Ratio 4.33 mg/dL (1.0-5.00); Cholesterol 117 mg/dL (0-200); Globulin 3.5 g/dL (1.3-4.6); Glucose 114 mg/dL (65-115); HDL Cholesterol 27 mg/dL (60-100); LDL Cholesterol Calculated 66 mg/dL (50-129); Magnesium 1.9 mg/dL (1.7-2.3); Osmolality Calculated 282 mOsm/kg (285-295); Phosphorus 2.7 mg/dL (2.5-4.5); Sodium 135 mmol/L (136-145); Total Bilirubin 0.4 mg/dL (0.15-1.2); Total Protein 6.3 g/dL (6.6-8.7); Triglycerides 120 mg/dL (0-150); VLDL Cholestrol Calculation 24 mg/dL (0-30)
[2022-09-11] MEDS: vancomycin 1,250 MG/250 ML PIGGYBACK 250 MG IV ×2 (05:24→23:52)
--- NOTE | 2022-09-11 06:15 | PM.PN ---
Subjective Subjective: Patient seen bedside this a.m., he is 1 day status post left hallux amputation secondary to osteomyelitis. Denies any acute events overnight. Patient denies any subjective nausea, vomiting, fever, chills, shortness of breath or chest pain. Vitals/I&O/Wt Last Vital Signs Temp 98.7 F 09/11/22 04:00 Pulse 103 H 09/11/22 04:00 Resp 22 H 09/11/22 04:00 BP 115/55 09/11/22 04:00 Pulse Ox 97 09/11/22 04:00 O2 Del Method 09/11/22 01:00 09/10/22 09/10/22 09/11/22 14:59 22:59 06:59 Intake Total 2722.17 / 2722.17 1892.5 / 4614.67 Output Total 600 / 600 700 / 1300 Balance 2122.17 / 2122.17 1192.5 / 3314.67 Weight last 48 hrs Weight 181 lb 3 oz Weight 178 lb Weight 178 lb Physical Exam Narrative: GENERAL: Patient is alert and oriented ?3 and in no acute distress.? The following is a focused bilateral lower extremity exam.? Patient accompanied by his .? Wearing cowboy boots. VASCULAR: Dorsalis pedis palpable, posterior tibial arteries palpable bilaterally.? Sluggish capillary refill greater than 5 seconds to the left great toe.? Decreased pedal hair growth.? Edema to the left hallux. NEUROLOGICAL: Protective sensation diminished. DERMATOLOGICAL: Some improvement cellulitis/erythema to the dorsum of the left foot. Skin flaps at left hallux amputation site still have significant erythema and leading edge has rincon dusky appearance. No purulence. First metatarsal head exposed appears to be viable. MUSCULOSKELETAL: No pain with palpation secondary to neuropathy at the left great toe.? No soft tissue crepitus to the left great toe. Data : 09/11/22 03:55 09/11/22 03:55 Micro: Microbiology 09/10/22 13:56 Blood Culture - Preliminary Blood SPECIMEN COLLECTED 09/10/22 13:51 Blood Culture - Preliminary Blood SPECIMEN COLLECTED A&P Assessment and plan (1) Osteomyelitis: Qualifiers: Osteomyelitis location: other site Osteomyelitis type: other acute Qualified Code(s): M86.18 - Other acute osteomyelitis, other site (2) Sepsis: Qualifiers: Sepsis acute organ dysfunction status: without acute organ dysfunction Sepsis type: sepsis due to unspecified organism Qualified Code(s): A41.9 - Sepsis, unspecified organism (3) Cellulitis of left foot: (4) Non-pressure chronic ulcer of other part of left foot with necrosis of bone: (5) Diabetic peripheral neuropathy associated with type 2 diabetes mellitus: Plan 72-year-old diabetic male with osteomyelitis left hallux, cellulitis, admitted to the hospital for sepsis, IV antibiotics and surgical intervention. Left hallux amputation performed 09/10/2022 Wound left open due to amount of erythema at amputation level Saline wet-to-dry dressing changes 3 times daily Will monitor soft tissue response over the next few days, should soft tissue quality improve will plan for primary delayed closure this 09/13/2022 Cultures taken prior to initiating antibiotics and sent to microbiology for gram stain and culture this was done in clinic, additional cultures of bone taken intraoperatively Recommend continuing empiric IV antibiotics, may narrow once cultures yield further information Nonweightbearing left foot, may heel touch for transfers Elevate left foot Podiatry will follow Attestations Medical Necessity Statement*: Osteomyelitis left hallux, cellulitis left lower extremity, sepsis Coding Level of Care Code Acute News Operations Manager for [facility] Diagnoses Osteomyelitis M86.18 Osteomyelitis location: other site Osteomyelitis type: other acute Sepsis A41.9 Sepsis acute organ dysfunction status: without acute organ dysfunction Sepsis type: sepsis due to unspecified organism Cellulitis of left foot L03.116 Non-pressure chronic ulcer of other part of left foot with necrosis of bone L97.524 Diabetic peripheral neuropathy associated with type 2 diabetes mellitus E11.42
[2022-09-11 07:44] LABS: Glucose Point of Care 103 mg/dL (70-110)
[2022-09-11] MEDS: levothyroxine 200 mcg Tablet PO (07:56)
[2022-09-11] MEDS: ferrous gluconate 324 mg Tablet PO ×2 (07:56→16:17)
--- NOTE | 2022-09-11 10:39 | PC.CHAP ---
Pastoral Care Encounter/Spiritual Assessment Type of Contact [] Declined ribbon blockmaker visit [] Patient/Family/Request visit [] Outpatient visit [] Follow-up visit [] Physician referral [] Code/Alert [x] Routine visit [] Staff referral [] Actively dying [x] Patient sleeping [] Family support [] [] Out of room [] Palliative care [] [] Receiving care in room [] Pre-surgical visit [] Trauma [] Long length of stay [x] ICU visit [] Other: Relational/Emotional Strength [] Patient feels connected with others/family/visitors/staff [] Distress [] Loneliness/isolation [] Abandonment Spirituality of Patient [] Person of Nicole [] Attends Jewish of their Nicole [] Believes in Prayer [] Reads Bible or Sabianism materials [] There are Spiritual issues to be addressed [employer] Interventions [x] Prayer [] Active listening [] Non-anxious presence [] Spiritual/emotional support [] Crisis/trauma care [] Spiritual counseling [] Bereavement support [] Provided bereavement packet [] Provided Bible/devotional materials [] Provided toy/stuffed animal, coloring book to patient or family member [] Provided Communion [] Anointing/[place] [] Salvation [x] Completed spiritual assessment [] Other: Impact on Illness or Injury [] Angry [] Fearful [] Anxious [] Often cries [] Exhaustion [] Unable to work [] Unable to attend episcopal [] Unable to walk/stand [] Unable to read [] Unable to drive [] Unable to eat/drink [] Unable to sleep [] Unable to be with family [] Patient intubated [] Other: Summary Time spent with patient
[2022-09-11 10:55] LABS: Free T4 Free Thyroxine 1.32 ng/dL (0.82-1.77); T3 Free 1.2 PG/ML (2.0-4.4)
[2022-09-11 11:35] LABS: Glucose Point of Care 135 mg/dL (70-110)
--- NOTE | 2022-09-11 11:57 | P.PN_ITS ---
Subjective Subjective: No acute events overnight. Patient underwent amputation yesterday evening. Continues to remain on room air. Earlier today morning had soft blood pressures but MAP maintained over 65. Currently blood pressure is better. Vitals/I&O/Wt Last Vital Signs Temp 98.7 F 09/11/22 04:00 Pulse 90 09/11/22 10:00 Resp 21 H 09/11/22 10:00 BP 113/70 09/11/22 10:00 Pulse Ox 95 09/11/22 10:00 O2 Del Method 09/11/22 10:00 09/10/22 09/11/22 09/11/22 22:59 06:59 14:59 Intake Total 2722.17 / 2722.17 1892.5 / 4614.67 220 / 220 Output Total 600 / 600 700 / 1300 400 / 400 Balance 2121.17 / 2121. 1192.5 / 3314.67 -180 / -180 Weight last 48 hrs Weight 82.185 kg Weight 80.739 kg Weight 80.739 kg Physical Exam Narrative: General: No acute distress, AO x3 HEENT: PERRLA, pupils bilaterally equal and reactive Chest: Normal vesicular breath sounds, no added sounds, equal good air entry bilaterally CVS: S1-S2 regular, no murmurs, no tachycardia, no gallops, no rubs Abdomen: Soft, nontender, no organomegaly, bowel sounds present Neuro: No focal deficits, no facial deformity, AO x3, power 5/5 in all limbs Extremities: Left foot surgically bandaged no soakage. Data : 09/11/22 03:55 09/11/22 03:55 Micro: Microbiology 09/10/22 17:16 Bacterial Antigens - Final Urine Kidney 09/10/22 13:56 Blood Culture - Preliminary Blood SPECIMEN COLLECTED 09/10/22 13:51 Blood Culture - Preliminary Blood SPECIMEN COLLECTED A&P Assessment and plan (1) Sepsis: Secondary to cellulitis and osteomyelitis of foot and great toe. Ruled in for tachycardia, elevated lactate and leukocytosis on admission. Patient also found to have mild renal dysfunction with metabolic acidosis on admission Keep saturation over 90, mean arterial pressure over 65. Patient eating well. Stop IV fluids. Qualifiers: Sepsis acute organ dysfunction status: without acute organ dysfunction Sepsis type: sepsis due to unspecified organism Qualified Code(s): A41.9 - Sepsis, unspecified organism (2) Osteomyelitis: Followed up with accreditation coordinator as an outpatient. Plan for amputation in the evening today. Follow-up blood cultures. MRSA pending. Post amputation day 1. Plan for delayed closure on 09/13. Appreciate podiatry recommendations. For now continue with empiric antibiotics with vancomycin and Zosyn. Will de- escalate as per culture results. Qualifiers: Osteomyelitis location: other site Osteomyelitis type: other acute Qualified Code(s): M86.18 - Other acute osteomyelitis, other site (3) Cellulitis of left foot: (4) Diabetes: Carb consistent diet once able to eat. Insulin sliding scale low-dose protocol. A1c more than 9. Will discuss with family regarding insulin as an outpatient. Qualifiers: Diabetes mellitus type: type 2 Diabetes mellitus terminal supervisor insulin use: without terminal supervisor use Diabetes mellitus complication status: with neurologic complications Diabetes mellitus complication detail: with polyneuropathy Qualified Code(s): E11.42 - Type 2 diabetes mellitus with diabetic polyneuropathy Plan Hypothyroidism: As per charted feels patient takes levothyroxine 200 mcg oral daily. TSH low. Check free T3 and free T4. We will adjust the dose accordingly. As per MAR patient is also on prednisone 5 mg twice daily. Unknown cause. Will confirm with the patient. Hold off for now. Analgesia: Morphine as needed 1 mg per 4 hours Glycemic control: Insulin sliding scale. A1c more than 9. Nutrition: Carb consistent diet CODE STATUS: Full code PUD prophylaxis: Famotidine for PUD prophylaxis DVT prophylaxis: SCDs on right leg for now. Discharge planning: Home with home health as per weightbearing recommendations from podiatry post OR Transfer to [facility]. This documentation was created by [employer] corn cutter software. Every effort was made to ensure accuracy of corn cutter. Any obvious errors or omissions should be clarified with the author of the document. Attestations Medical Necessity Statement*: Requires further hospitalization for postoperative care, post amputation for osteomyelitis while patient awaits delayed secondary closure of the wound Time Spent in Patient Care: Greater than 35 minutes Coding Level of Care Code Acute Music Store Manager for [facility] Fwd Diagnoses Sepsis A41.9 Sepsis acute organ dysfunction status: without acute organ dysfunction Sepsis type: sepsis due to unspecified organism Osteomyelitis M86.18 Osteomyelitis location: other site Osteomyelitis type: other acute Cellulitis of left foot L03.116 Diabetes E11.42 Diabetes mellitus type: type 2 Diabetes mellitus chcf insulin use: without chcf use Diabetes mellitus complication status: with neurologic complications Diabetes mellitus complication detail: with polyneuropathy
--- NOTE | 2022-09-11 13:46 | PC.NURSE ---
Patient successfully transferred to second floor room 261. Patient resting in bed with belongings at bedside. Patient chart left with staff at credit front office developer.
[2022-09-11 17:11] LABS: Glucose Point of Care 160 mg/dL (70-110)
--- NOTE | 2022-09-11 19:32 | PC.NURSE ---
BEDSIDE REPORT TAKEN FROM [facility]. PATIENT A&O, VSS. VISITORS AT BEDSIDE AT TIME OF REPORT. PATIENT HAD NO FURTHER NEEDS AT THIS TIME.
[2022-09-11 20:45] LABS: Glucose Point of Care 130 mg/dL (70-110)
--- NOTE | 2022-09-11 20:50 | PC.NURSE ---
WET-TO-DRY DRESSING CHANGE PERFORMED ON LEFT AMPUTATED TOE.
[2022-09-12] VITALS (8 sets, daily range): BP systolic 111–124; BP diastolic 65–73; PULSE 82–87; RESP 16–18; TEMP 36.4–36.8; O2SAT 94–97
--- NOTE | 2022-09-12 00:05 | PC.NURSE ---
IV IN LEFT AC INFILTRATED. NEW 20 GAUGE IV STARTED IN LEFT FOREARM. SITE PATENT AND ASYMPTOMATIC.
[2022-09-12] MEDS: piperacillin-tazobactam 3.375 GM in sodium chloride 0.9% (plus) 50 ML IV ×3 (01:11→17:09)
[2022-09-12 05:03] LABS: Basophils % 0.6 %; Eosinophils # 0.3 10^3/uL (0.0-0.8); Eosinophils % 4.4 %; Hemoglobin 12.5 g/dL (11.7-16.6); Lymphocytes % 29.2 %; Mean Corpuscular HGB Conc 32.1 g/dL (30.0-36.0); Mean Corpuscular Hemoglobin 28.7 pg (28.0-34.0); Mean Corpuscular Volume 89.4 fl (80-94); Mean Platelet Volume 9.2 fL (7.4-10.4); Monocytes # 0.6 10^3/uL (0.2-0.9); Monocytes % 8.2 %; Neutrophils # 3.88 10^3/uL (1.8-7.7); Neutrophils % 57.2 %; Nucleated Red Blood Cells % 0 %; Platelet Count 197 10^3/cmm (130-400); Red Blood Count 4.36 10^6/uL (4.1-5.3); Red Cell Distribution Width 11.9 % (12.1-15.1); White Blood Count 6.8 10^3/uL (4.0-10.0)
[2022-09-12] MEDS: famotidine 20 mg/2 mL INJ IVP ×2 (05:06→17:08)
[2022-09-12 05:21] LABS: Alanine Aminotransferase 13 U/L (0-41); Alkaline Phosphatase 104 U/L (40-130); Anion Gap 15.2 (5-19); Aspartate Amino Transferase 19 U/L (0-40); Blood Urea Nitrogen 15 mg/dL (8-23); Calcium 8.7 mg/dL (8.5-10.5); Carbon Dioxide 21 mmol/L (22-29); Chloride 101 mmol/L (98-107); Globulin 3.6 g/dL (1.3-4.6); Glucose 118 mg/dL (65-115); Osmolality Calculated 278 mOsm/kg (285-295); Potassium 4.2 mmol/L (3.5-5.1); Sodium 133 mmol/L (136-145); Total Bilirubin 0.3 mg/dL (0.15-1.2); Total Protein 6.6 g/dL (6.6-8.7)
[2022-09-12 06:18] LABS: Glucose Point of Care 163 mg/dL (70-110)
--- NOTE | 2022-09-12 07:22 | P.PN_ITS ---
Subjective Subjective: Patient seen bedside this morning, transition to [facility] from ICU doing well. Denies any acute events overnight. Denies any left foot pain. Patient denies any subjective nausea, vomiting, fever, chills, shortness of breath or chest pain. Vitals/I&O/Wt Last Vital Signs Temp 97.9 F 09/12/22 04:00 Pulse 82 09/12/22 04:00 Resp 18 09/12/22 04:00 BP 117/71 09/12/22 04:00 Pulse Ox 95 09/12/22 04:00 O2 Del Method 09/11/22 19:56 09/11/22 09/12/22 09/12/22 22:59 06:59 14:59 Intake Total 300 / 806 1150 / 1956 Output Total 300 / 950 1450 / 2400 Balance 0 / -144 -300 / -444 Weight last 48 hrs Weight 178 lb Weight 181 lb Weight 181 lb 3 oz Weight 178 lb Weight 178 lb Physical Exam Narrative: GENERAL: Patient is alert and oriented ?3 and in no acute distress.? The following is a focused bilateral lower extremity exam.? Patient accompanied by his .? Wearing cowboy boots. VASCULAR: Dorsalis pedis palpable, posterior tibial arteries palpable bilaterally.? Sluggish capillary refill greater than 5 seconds to the left great toe.? Decreased pedal hair growth.? Edema to the left hallux. NEUROLOGICAL: Protective sensation diminished. DERMATOLOGICAL: Continued improvement to soft tissue at the left great toe amputation site, decreased erythema appreciated. No purulent drainage. Bleeding at skin edges appreciated. No pedrito purulence. Fibrotic tissue at 6:00 portion of the wound. MUSCULOSKELETAL: No pain with palpation secondary to neuropathy at the left great toe.? No soft tissue crepitus to the left great toe. Data : 09/12/22 04:39 09/12/22 04:39 Micro: Microbiology 09/10/22 17:16 MRSA Culture - Final Nose 09/10/22 18:17 Gram Stain - Final Toe - #1 09/10/22 13:56 Blood Culture - Preliminary Blood NEGATIVE TO DATE 09/10/22 13:51 Blood Culture - Preliminary Blood NEGATIVE TO DATE 09/10/22 17:16 Bacterial Antigens - Final Urine Kidney A&P Assessment and plan (1) Osteomyelitis: Qualifiers: Osteomyelitis location: other site Osteomyelitis type: other acute Qualified Code(s): M86.18 - Other acute osteomyelitis, other site (2) Sepsis: Qualifiers: Sepsis acute organ dysfunction status: without acute organ dysfunction Sepsis type: sepsis due to unspecified organism Qualified Code(s): A41.9 - Sepsis, unspecified organism (3) Cellulitis of left foot: (4) Non-pressure chronic ulcer of other part of left foot with necrosis of bone: (5) Diabetic peripheral neuropathy associated with type 2 diabetes mellitus: Plan 72-year-old diabetic male with osteomyelitis left hallux, cellulitis, admitted to the hospital for sepsis, IV antibiotics and surgical intervention. * Left hallux amputation performed 09/10/2022 * Primary delayed closure scheduled tomorrow morning 7 AM 09/13/2022 * N.p.o. at midnight * Continue empiric antibiotics, awaiting culture results * Plan for 2 weeks of oral antibiotics on discharge * Likely discharge tomorrow after delayed closure 09/13/2022 * Heel touch only for transfers at the left lower extremity with Darco OrthoWedge heel * Will follow-up in podiatry clinic next week Attestations Medical Necessity Statement*: Diabetic foot infection Coding Level of Care Code Acute Checkering Machine Operator for [facility] Fw Diagnoses Osteomyelitis M86.18 Osteomyelitis location: other site Osteomyelitis type: other acute Sepsis A41.9 Sepsis acute organ dysfunction status: without acute organ dysfunction Sepsis type: sepsis due to unspecified organism Cellulitis of left foot L03.116 Non-pressure chronic ulcer of other part of left foot with necrosis of bone L97.524 Diabetic peripheral neuropathy associated with type 2 diabetes mellitus E11.42
[2022-09-12] MEDS: levothyroxine 200 mcg Tablet PO (08:49)
[2022-09-12] MEDS: ferrous gluconate 324 mg Tablet PO ×2 (08:49→17:08)
[2022-09-12] MEDS: insulin lispro 100 unit/1 mL SUBCUT ×2 (08:51→12:11)
[2022-09-12 10:54] LABS: Glucose Point of Care 216 mg/dL (70-110)
--- NOTE | 2022-09-12 11:55 | P.PN_ITS ---
Subjective Subjective: No acute events overnight. Dressing changed by podiatry. Seen on [facility] floor today. Denies any new complaints. Has remained hemodynamically stable and afebrile. Vitals/I&O/Wt Last Vital Signs Temp 97.6 F 09/12/22 11:24 Pulse 87 09/12/22 11:24 Resp 16 09/12/22 11:24 BP 119/68 09/12/22 11:24 Pulse Ox 94 09/12/22 11:24 O2 Del Method 09/12/22 11:24 09/11/22 09/12/22 09/12/22 22:59 06:59 14:59 Intake Total 300 / 806 1150 / 1956 120 / 120 Output Total 300 / 950 1450 / 2400 300 / 300 Balance 0 / -144 -300 / -444 -180 / -180 Weight last 48 hrs Weight 80.739 kg Weight 82.1 kg Weight 82.185 kg Weight 80.739 kg Physical Exam Narrative: General: No acute distress, AO x3 HEENT: PERRLA, pupils bilaterally equal and reactive Chest: Normal vesicular breath sounds, no added sounds, equal good air entry bilaterally CVS: S1-S2 regular, no murmurs, no tachycardia, no gallops, no rubs Abdomen: Soft, nontender, no organomegaly, bowel sounds present Neuro: No focal deficits, no facial deformity, AO x3, power 5/5 in all limbs Extremities: Left foot surgically bandaged no soakage. Data : 09/12/22 04:39 09/12/22 04:39 Micro: Microbiology 09/10/22 18:17 Gram Stain - Final Toe - #1 Tissue Culture - Preliminary 09/10/22 17:16 MRSA Culture - Final Nose 09/10/22 13:56 Blood Culture - Preliminary Blood NEGATIVE TO DATE 09/10/22 13:51 Blood Culture - Preliminary Blood NEGATIVE TO DATE 09/10/22 17:16 Bacterial Antigens - Final Urine Kidney A&P Assessment and plan (1) Sepsis: Secondary to cellulitis and osteomyelitis of foot and great toe. Ruled in for tachycardia, elevated lactate and leukocytosis on admission. Patient also found to have mild renal dysfunction with metabolic acidosis on admission Keep saturation over 90, mean arterial pressure over 65. Patient eating well. Stop IV fluids. Qualifiers: Sepsis acute organ dysfunction status: without acute organ dysfunction Sepsis type: sepsis due to unspecified organism Qualified Code(s): A41.9 - Sepsis, unspecified organism (2) Osteomyelitis: Postoperative day 2. Plan for delayed closure tomorrow. MRSA negative. Outpatient wound cultures growing gram-negative rods. Continue with Zosyn. Stop vancomycin. Plan to de-escalate antibiotics once sensitivities speciation awaited. Plan to discharge on oral antibiotics for next 2 weeks. Qualifiers: Osteomyelitis location: other site Osteomyelitis type: other acute Qualified Code(s): M86.18 - Other acute osteomyelitis, other site (3) Cellulitis of left foot: (4) Diabetes: Carb consistent diet once able to eat. Insulin sliding scale low-dose protocol. A1c more than 9. Will discuss with family regarding insulin as an outpatient. Qualifiers: Diabetes mellitus type: type 2 Diabetes mellitus terminal makeup operator insulin use: without terminal makeup operator use Diabetes mellitus complication status: with neurologic complications Diabetes mellitus complication detail: with polyneuropathy Qualified Code(s): E11.42 - Type 2 diabetes mellitus with diabetic polyneuropathy Plan Hypothyroidism: As per charted feels patient takes levothyroxine 200 mcg oral daily. TSH low. T4 within normal limits, T3 on the lower side. Continue with current dose. As per MAR patient is also on prednisone 5 mg twice daily. Started by oncology. Patient has not received or started the medication yet. Analgesia: Morphine as needed 1 mg per 4 hours Glycemic control: Insulin sliding scale. A1c more than 9. Nutrition: Carb consistent diet CODE STATUS: Full code PUD prophylaxis: Famotidine for PUD prophylaxis DVT prophylaxis: SCDs on right leg for now. Discharge planning: Home with home health as per weightbearing recommendations from podiatry post OR Transfer to [facility]. This documentation was created by [employer] superintendent fish hatchery software. Every effort was made to ensure accuracy of superintendent fish hatchery. Any obvious errors or omissions should be clarified with the author of the document. Attestations Medical Necessity Statement*: Requires further hospitalization for management of osteomyelitis, cellulitis of left great toe while he awaits secondary closure post amputation Time Spent in Patient Care: Greater than 35 minutes Coding Level of Care Code Acute Cotton Stomper for [facility] Fwd Diagnoses Sepsis A41.9 Sepsis acute organ dysfunction status: without acute organ dysfunction Sepsis type: sepsis due to unspecified organism Osteomyelitis M86.18 Osteomyelitis location: other site Osteomyelitis type: other acute Cellulitis of left foot L03.116 Diabetes E11.42 Diabetes mellitus type: type 2 Diabetes mellitus fdc insulin use: without fdc use Diabetes mellitus complication status: with neurologic complications Diabetes mellitus complication detail: with polyneuropathy
[2022-09-12 17:04] LABS: Glucose Point of Care 141 mg/dL (70-110)
[2022-09-12 20:49] LABS: Glucose Point of Care 225 mg/dL (70-110)
[2022-09-13] VITALS (13 sets, daily range): BP systolic 100–129; BP diastolic 58–79; PULSE 73–92; RESP 14–20; TEMP 36.4–36.8; O2SAT 94–98
[2022-09-13] MEDS: piperacillin-tazobactam 3.375 GM in sodium chloride 0.9% (plus) 50 ML IV ×2 (00:53→07:57)
[2022-09-13] MEDS: famotidine 20 mg/2 mL INJ IVP (04:00)
[2022-09-13 05:10] LABS: Basophils % 0.4 %; Eosinophils # 0.4 10^3/uL (0.0-0.8); Eosinophils % 5.2 %; Hematocrit 38.6 % (42.0-52.0); Hemoglobin 12.8 g/dL (11.7-16.6); Lymphocytes # 2.1 10^3/uL (0.8-4.8); Lymphocytes % 28.8 %; Mean Corpuscular HGB Conc 33.2 g/dL (30.0-36.0); Mean Corpuscular Hemoglobin 29.8 pg (28.0-34.0); Mean Corpuscular Volume 89.8 fl (80-94); Monocytes # 0.6 10^3/uL (0.2-0.9); Monocytes % 7.7 %; Neutrophils # 4.18 10^3/uL (1.8-7.7); Neutrophils % 57.5 %; Nucleated Red Blood Cells % 0 %; Platelet Count 218 10^3/cmm (130-400); Red Cell Distribution Width 11.9 % (12.1-15.1); White Blood Count 7.3 10^3/uL (4.0-10.0)
[2022-09-13 05:51] LABS: Alanine Aminotransferase 13 U/L (0-41); Albumin Level 2.9 g/dL (3.5-5.2); Alkaline Phosphatase 103 U/L (40-130); Anion Gap 14.9 (5-19); Aspartate Amino Transferase 15 U/L (0-40); Blood Urea Nitrogen 14 mg/dL (8-23); Carbon Dioxide 26 mmol/L (22-29); Chloride 102 mmol/L (98-107); Globulin 3.5 g/dL (1.3-4.6); Glucose 143 mg/dL (65-115); Osmolality Calculated 291 mOsm/kg (285-295); Potassium 3.9 mmol/L (3.5-5.1); Sodium 139 mmol/L (136-145); Total Bilirubin 0.2 mg/dL (0.15-1.2); Total Protein 6.4 g/dL (6.6-8.7)
[2022-09-13 06:46] LABS: Glucose Point of Care 134 mg/dL (70-110)
[2022-09-13] MEDS: ferrous gluconate 324 mg Tablet PO (07:57)
[2022-09-13] MEDS: levothyroxine 200 mcg Tablet PO (07:57)
[2022-09-13] MEDS: sodium chloride 0.9% 1,000 ML 30 ML IV (09:02)
--- NOTE | 2022-09-13 09:08 | ANES.PREANE2 ---
Pre-Anesthetic Assessment Height/Weight: Height 1.85 m Weight 80.739 kg Temp Pulse Resp BP Pulse Ox O2 Del Method 98.2 F 91 14 116/69 96 09/13/22 09:01 09/13/22 09:01 09/13/22 09:01 09/13/22 09:01 09/13/22 09:01 09/13/22 09:01 Operation Date: 09/10/22 18:00 Proposed Procedures p Amputation Toe/s(Left) - Oswald Perkins DPM Operation Date: 09/13/22 12:20 Proposed Procedures p Delayed Wound Closure Left Foot(Left) - Oswald Perkins DPM Familial anesthetic complications: None Was Beta Sanam taken within 24 hours: N/A Was Clonidine taken within 24 hours: N/A Last intake: Intake Last Liquid Date 09/12/22 Last Liquid Time 20:00 Last Solid Date 09/12/22 Last Solid Time 18:00 Social No alcohol and No tobacco Exam alert, oriented x 3, clear to auscultation bilaterally and regular rate & rhythm Airway Mallampati: Class IV Dentition: other (missing) Comments: Comments: small mouth opening Metabolic Diabetes Mellitus and Thyroid Disease Anesthetic Plan ASA status: 3 Anesthesia: MAC Risk of > 500 ml blood loss (7ml/kg in children): No Medications/Allergies Home Medications Medication Instructions Recorded Confirmed Last Taken Type levothyroxine 200 mcg capsule 200 mcg PO DAILY Jardiance 07/24/22 09/10/22 09/10/22 History abiraterone 250 mg tablet 250 mg PO DAILY #30 tabs 08/28/22 09/10/22 Unknown Rx empagliflozin 25 mg tablet 25 mg PO DAILY 08/28/22 09/10/22 09/10/22 History prednisone 5 mg tablet 5 mg PO BID #60 tabs 08/28/22 09/10/22 Unknown Rx Allergies Allergy/AdvReac Type Severity Reaction Status Date / Time No Known Allergies Allergy Verified 09/10/22 11:04 Current Medications Generic Name Dose Route Start Last Admin Trade Name Freq PRN Reason Stop Dose Admin Famotidine 20 mg 09/10/22 16:15 09/13/22 04:00 Famotidine 20 Mg/2 Ml Inj IVP 20 mg Q12H RAFIA Administration Ferrous Gluconate 324 mg 09/10/22 18:00 09/13/22 07:57 Ferrous Gluconate 324 Mg Tablet PO 324 mg BIDWM RAFIA Administration Piperacillin Sod/Tazobactam 50 mls @ 12.5 mls/hr 09/10/22 17:00 09/13/22 07:57 Sod 3.375 gm/ Sodium Chloride IV 12.5 mls/hr Q8H RAFIA Administration Sodium Chloride 1,000 mls @ 30 mls/hr 09/13/22 09:00 09/13/22 09:02 Sodium Chloride 0.9% IV 09/14/22 08:59 30 mls/hr .Q24H RAFIA Administration Insulin Human Lispro 0 unit 09/10/22 18:00 09/13/22 07:05 Insulin Lispro 100 Unit/1 Ml SUBCUT Not Given WM&BEDTIME RAFIA Protocol Levothyroxine Sodium 200 mcg 09/11/22 09:00 09/13/22 07:57 Levothyroxine 200 Mcg Tablet PO 200 mcg DAILY RAFIA Administration PFSH Anesthesia Medical History (Updated 09/11/22 @ 06:16 by Oswald Perkins DPM) Diabetes Diabetic peripheral neuropathy associated with type 2 diabetes mellitus Fatty liver Interstitial lung disease Non-pressure chronic ulcer of other part of left foot with necrosis of bone Prostate cancer Prostate cancer Surgical History (Updated 09/10/22 @ 14:12 by Sergo Oshea DO) Hx of tonsillectomy 1979 Family History Mother Hypertension Father Dementia CAD (coronary artery disease) Cancer Prostate Hyperlipidemia Denies family history of Diabetes Clotting disorder Psychiatric illness Chronic kidney disease (CKD) Suicide Anesthesia complication Bleeding disorder Lung disease Stroke Social History Smoking and tobacco status: former smoker (smoked x 10 years) Alcohol intake: never Adopted: No Caregiver/support person: No Data Anesthesia : 09/13/22 04:23 09/13/22 04:23 Short CBC 09/12/22 09/13/22 Range/Units 04:39 04:23 WBC 6.8 7.3 (4.0-10.0) 10^3/uL Hgb 12.5 12.8 (11.7-16.6) g/dL Hct 39.0 L 38.6 L (42.0-52.0) % MCV 89.4 89.8 (80-94) fl Plt Count 197 218 (130-400) 10^3/cmm Neut % (Auto) 57.2 57.5 % Neut # (Auto) 3.88 4.18 (1.8-7.7) 10^3/uL BMP 09/12/22 09/13/22 04:39 04:23 Sodium 133 L 139 Potassium 4.2 3.9 Chloride 101 102 Carbon Dioxide 21 L 26 BUN 15 14 Creatinine 0.8 0.8 Glucose 118 H 143 H Calcium 8.7 9.0 Liver Function 09/12/22 09/13/22 Range/Units 04:39 04:23 Total Bilirubin 0.3 0.2 (0.15-1.2) mg/dL AST 19 15 (0-40) U/L ALT 13 13 (0-41) U/L Alkaline Phosphatase 104 103 (40-130) U/L Albumin 3.0 L 2.9 L (3.5-5.2) g/dL Microbiology 09/10/22 18:17 Gram Stain - Final Toe - #1 Tissue Culture - Preliminary Cardiac Studies: No Data to Display
[2022-09-13] MEDS: lidocaine 1% INJ 20 mL SUBCUT (09:27)
--- NOTE | 2022-09-13 09:49 | W.PM.OPSUD ---
Surgery/Procedure H&P Update DATE OF PROCEDURE: September 13, 2022 DATE H&P PERFORMED: 09/10/22 CHANGES TO PREVIOUS DOCUMENTATION: none PLANNED PROCEDURE: Operation Date: 09/10/22 18:00 Proposed Procedures p Amputation Toe/s(Left) - Oswald Perkins DPM Operation Date: 09/13/22 12:20 Proposed Procedures p Delayed Wound Closure Left Foot(Left) - Oswald Perkins DPM
--- NOTE | 2022-09-13 09:49 | PM.OP ---
Operative Report Date of procedure: September 13, 2022 Pre-op diagnosis: Osteomyelitis left hallux. Cellulitis left foot. Sepsis secondary to diabetic foot infection.
--- NOTE | 2022-09-13 09:54 | P.OP_ITS ---
Operative Report Date of procedure: September 13, 2022 Pre-op diagnosis: Osteomyelitis left hallux. Cellulitis left foot. Sepsis secondary to diabetic foot infection. Post-op diagnosis: Same Post-op findings: Improved soft tissue quality postdebridement Procedure done: Primary delayed closure left foot. [id number] Implants: 3-0 Vicryl, 3-0 nylon, 4 nylon Specimens removed/disposition: None Pathology: None Surgeon: Oswald Perkins D.P.M. Tearer Press Clipping: Hailee Estimated blood loss: 5 No IV fluids: None Urine output: 0 Complications: None Findings: Improved soft tissue quality with bleeding skin margins postdebridement Brief History: Osteomyelitis, gangrene left great toe secondary to diabetic foot infection. Patient is status post left hallux amputation. Has underwent 3 times daily wet-to-dry dressing changes and has been on empiric IV antibiotics with improvement. Recommending further debridement with primary delayed closure to the left foot. Procedure: Under mild sedation the patient was brought to the operating room and remained on the gurney in supine position. A timeout was performed. Anesthesia was then administered by the anesthesia service. Local anesthesia was injected by myself consisting of 30 cc of one-to-one mixture 1% lidocaine and 0.25% Marcaine plain in a left Macdonald block fashion. Well-padded pneumatic tourniquet was applied to the left calf this was not inflated during the procedure. Left lower extremity was scrubbed, prepped and draped utilizing normal aseptic technique. Attention was directed to the left foot wound where dorsal and plantar flaps were inspected, these were debrided of devitalized epidermis, dermis and subcutaneous tissue, deep capsule and fascia were debrided sharply with brown pickups and #15 blade. All devitalized tissue was debrided and passed from operative field followed by irrigation with saline. The incision was then approximated for primary delayed closure utilizing 3-0 Vicryl at periosteum and subcutaneous tissue with skin reapproximated utilizing accommodation of 3-0 nylon and 4-0 nylon. The incision was then dressed with Adaptic, sterile 4 x 4, Kerlix and Jonathan wrap. Patient tolerated the procedure and anesthesia well and was transferred to the PACU with vital signs stable and vascular status intact. Following a period of postoperative monitoring he will be transferred back to the floor. He is to be nonweightbearing to the left lower extremity. May heel touch only for short transfers with a Darco OrthoWedge heel. He is advised to elevate his left foot at all times while resting. Okay for discharge from surgical standpoint, no further surgical intervention anticipated during this hospitalization. Recommend oral antibiotics at discharge for 14 days. Will need additional coverage for gram-negative's. Will discuss with hospitalist. Follow-up in podiatry clinic with Dr. Perkins next week He is to keep the postoperative dressing clean, dry and intact until his follow- up in clinic.
[2022-09-13 11:08] LABS: Glucose Point of Care 123 mg/dL (70-110)
--- NOTE | 2022-09-13 11:29 | P.DS_ITS ---
Discharge Providers Date of Admission: 09/10/22 16:38 Date of Discharge: September 13, 2022 Attending Provider at Admission: Jose Jones MD Attending Provider at Discharge: Jose Jones MD Consults: Podiatry: Dr. Perkins Primary Care Provider: JOHANNA Westfall Diagnoses at Discharge Discharge Diagnosis (1) Sepsis: Status: Acute Qualifiers: Sepsis acute organ dysfunction status: without acute organ dysfunction Sepsis type: sepsis due to unspecified organism Qualified Code(s): A41.9 - Sepsis, unspecified organism (2) Osteomyelitis: Status: Acute Qualifiers: Osteomyelitis location: other site Osteomyelitis type: other acute Qualified Code(s): M86.18 - Other acute osteomyelitis, other site (3) Cellulitis of left foot: Status: Acute (4) Diabetes: Status: Acute Qualifiers: Diabetes mellitus complication detail: with polyneuropathy Diabetes mellitus complication status: with neurologic complications Diabetes mellitus intermediate insulin use: without hospice chaplain use Diabetes mellitus type: type 2 Qualified Code(s): E11.42 - Type 2 diabetes mellitus with diabetic polyneuropathy Reason for Visit Reason for Visit: Sent by , infection of great toe Brief History: Cristobal Rincon is a 72 year old male with past medical history of type 2 diabetes mellitus, prostate cancer who was sent into the ER today to the podiatry office.? After the patient history developed a callus on the right great toe around 4 months ago which has been getting worse gradually over a period of time but over the last 1 week has become more erythematous, painful with foul- smelling discharge.? Denied any known fever but complaining of chills at home.? At podiatry office there was a concern for possible osteomyelitis hence he was sent into the ER. ER course: In the ER he was found to have a heart rate of 150s for which she received 2-1/2 L of fluid as per sepsis protocol, IV vancomycin.? After that he was admitted to ICU. On my examinations while seen in ICU patient's heart rate is running in 150s beats per minute, blood pressure 145/70 saturating well on room air, awake and alert.? Complaining of toe pain but denies any other nausea vomiting, headache, dizziness, chest pain. Hospital Course Hospital Course Patient was admitted to hospital further evaluation management secondary to sepsis from cellulitis/osteomyelitis. He was started on broad-spectrum antibiotics. Podiatry was consulted. He underwent left great toe amputation of metatarsophalangeal joint. Eventually his wound cultures grew E. coli. Antibiotics were transitioned as per culture sensitivities. He underwent delayed closure of the wound on 09/13. During hospitalization he was found to have uncontrolled type 2 diabetes mellitus with A1c of more than 9. Patient is advised for increased anti-diabetic medications or insulin use but he wants to talk to his primary care provider before doing any changes to his medications. Patient was advised to follow-up with his primary care provider at the earliest for better control of type 2 diabetes mellitus. He is been discharged in medically stable condition on oral Augmentin for 2 more weeks with advised to follow-up with his primary care provider and podiatry team within the next 1 week. He is advised to be nonweightbearing on the feet along with dressing as per podiatry team till he is seen again in the podiatry office. Physical Exam Narrative: General: No acute distress, AO x3 HEENT: PERRLA, pupils bilaterally equal and reactive Chest: Normal vesicular breath sounds, no added sounds, equal good air entry bilaterally CVS: S1-S2 regular, no murmurs, no tachycardia, no gallops, no rubs Abdomen: Soft, nontender, no organomegaly, bowel sounds present Neuro: No focal deficits, no facial deformity, AO x3, power 5/5 in all limbs Extremities: Left foot surgically bandaged no soakage. Discharge Data Studies Completed and Pending Completed Studies During Hospitalization Category Date Time Status XR chest 1V portable [id number] Stat Exams 09/10/22 13:15 Completed Pending at discharge Category Date Time Status Blood Culture Stat Lab 09/10/22 13:56 Results Tissue Culture and Gram Stain Routine Lab 09/10/22 18:17 Results Pathology: Surgical [PTH] Routine Pth 09/10/22 18:22 Received Radiology Impressions Chest X-Ray 09/10/22 13:15 IMPRESSION: Chronic appearing interstitial lung disease. Preliminary micro results at discharge 09/10/22 18:17 Tissue Culture - Preliminary Toe - #1 09/10/22 13:56 Blood Culture - Preliminary Blood NEGATIVE TO DATE 09/10/22 13:51 Blood Culture - Preliminary Blood NEGATIVE TO DATE Wound Culture Final 09/13/22-1120 Organism 1 Escherichia coli Growth MODERATE FEW MIXED SUPERFICIAL MARTY ON DAY 2 E coli M.I.C. RX --------- ------ * Amikacin <=16 S * Amoxicillin/Clavulanate <=8/4 S * Ampicillin <=8 S * Ampicillin/Sulbactam <=8/4 S * Aztreonam <=4 S * Cefepime <=8 S * Ceftriaxone <=1 S * Cefuroxime <=4 S * Ciprofloxacin >2 R * Gentamicin <=2 S * Imipenem <=1 S * Levofloxacin >4 R * Tetracycline <=4 S * Trimethoprim/Sulfamethoxazole <=2/38 S * Piperacillin/Tazobactam <=16 S Wound Culture Preliminary (changed) 09/12/22-1137 Organism 1 Gram Negative Rods Growth MODERATE Laboratory Results WBC 7.3 10^3/uL (4.0-10.0) 09/13/22 04:23 RBC 4.30 10^6/uL (4.1-5.3) 09/13/22 04:23 Hgb 12.8 g/dL (11.7-16.6) 09/13/22 04:23 Hct 38.6 % (42.0-52.0) L 09/13/22 04:23 MCV 89.8 fl (80-94) 09/13/22 04:23 MCH 29.8 pg (28.0-34.0) 09/13/22 04:23 MCHC 33.2 g/dL (30.0-36.0) 09/13/22 04:23 RDW 11.9 % (12.1-15.1) L 09/13/22 04:23 Plt Count 218 10^3/cmm (130-400) 09/13/22 04:23 MPV 9.0 fL (7.4-10.4) 09/13/22 04:23 Neut % (Auto) 57.5 % 09/13/22 04:23 Lymph % (Auto) 28.8 % 09/13/22 04:23 [place] % (Auto) 7.7 % 09/13/22 04:23 Eos % (Auto) 5.2 % 09/13/22 04:23 Baso % (Auto) 0.4 % 09/13/22 04:23 Neut # (Auto) 4.18 10^3/uL (1.8-7.7) 09/13/22 04:23 Lymph # (Auto) 2.1 10^3/uL (0.8-4.8) 09/13/22 04:23 [place] # (Auto) 0.6 10^3/uL (0.2-0.9) 09/13/22 04:23 Eos # (Auto) 0.4 10^3/uL (0.0-0.8) 09/13/22 04:23 Baso # (Auto) 0.0 10^3/uL (0.0-0.1) 09/13/22 04:23 Nucleated RBC % (auto) 0 % 09/13/22 04:23 Nucleated RBCs # 0.0 /100WBC 09/13/22 04:23 ESR 33 mm/hr (0-10) H 09/10/22 13:15 PT 15.70 SECONDS (12.1-14.9) H 09/10/22 13:20 INR 1.22 (0.8-1.2) H 09/10/22 13:20 APTT 30.4 SECONDS (23.9-36.7) 09/10/22 13:20 Sodium 139 mmol/L (136-145) 09/13/22 04:23 Potassium 3.9 mmol/L (3.5-5.1) 09/13/22 04:23 Chloride 102 mmol/L (98-107) 09/13/22 04:23 Carbon Dioxide 26 mmol/L (22-29) 09/13/22 04:23 Anion Gap 14.9 (5-19) 09/13/22 04:23 BUN 14 mg/dL (8-23) 09/13/22 04:23 Creatinine 0.8 mg/dL (0.7-1.2) 09/13/22 04:23 GFR Calculation Not Reportable 09/13/22 04:23 Glucose 143 mg/dL (65-115) H 09/13/22 04:23 POC Glucose 123 mg/dL (70-110) H 09/13/22 10:51 Estimat Average Glucose 229 09/11/22 03:55 Hemoglobin A1c 9.6 % (4.0-6.0) H 09/11/22 03:55 Calculated Osmolality 291 mOsm/kg (285-295) 09/13/22 04:23 Lactic Acid 2.6 mmol/L (0.5-2.2) H 09/10/22 13:15 Lactic Acid (Sepsis) 1.3 mmol/L (0.5-2.2) 09/10/22 16:24 Calcium 9.0 mg/dL (8.5-10.5) 09/13/22 04:23 Phosphorus 2.7 mg/dL (2.5-4.5) 09/11/22 03:55 Magnesium 1.9 mg/dL (1.7-2.3) 09/11/22 03:55 Iron 15 ug/dL (59-158) L 09/10/22 16:24 TIBC 185 mcg/dl 09/10/22 16:24 % Saturation 8.1 % (20-50) L 09/10/22 16:24 Unsat Iron Binding 170 ug/dL (112-347) 09/10/22 16:24 Total Bilirubin 0.2 mg/dL (0.15-1.2) 09/13/22 04:23 AST 15 U/L (0-40) 09/13/22 04:23 ALT 13 U/L (0-41) 09/13/22 04:23 Alkaline Phosphatase 103 U/L (40-130) 09/13/22 04:23 C-Reactive Protein 257.0 mg/L (0.0-4.9) H 09/10/22 13:15 Total Protein 6.4 g/dL (6.6-8.7) L 09/13/22 04:23 Albumin 2.9 g/dL (3.5-5.2) L 09/13/22 04:23 Globulin 3.5 g/dL (1.3-4.6) 09/13/22 04:23 Triglycerides 120 mg/dL (0-150) 09/11/22 03:55 Cholesterol 117 mg/dL (0-200) 09/11/22 03:55 LDL Cholesterol, Calc 66 mg/dL (50-129) 09/11/22 03:55 Total VLDL Cholesterol 24 mg/dL (0-30) 09/11/22 03:55 HDL Cholesterol 27 mg/dL (60-100) L 09/11/22 03:55 Cholesterol/HDL Ratio 4.33 mg/dL (1.0-5.00) 09/11/22 03:55 Vitamin B12 187 pg/mL (232-1245) L 09/10/22 16:24 Folate 15.6 ng/mL (4.5-32.2) 09/10/22 16:24 Procalcitonin 0.96 ng/mL (0-0.5) H 09/10/22 16:24 TSH 0.17 uIU/mL (0.27-4.20) L 09/10/22 16:24 TSH Cancelled 09/10/22 16:24 Free T4 1.32 ng/dL (0.82-1.77) 09/11/22 03:55 Free T3 1.2 PG/ML (2.0-4.4) L 09/11/22 03:55 Urine Color Yellow (Yellow) 09/10/22 17:16 Urine Appearance Clear (CLEAR) 09/10/22 17:16 Urine pH 5 (5-7) 09/10/22 17:16 Ur Specific [place] 1.015 (1.005-1.030) 09/10/22 17:16 Urine Protein Neg (Negative) 09/10/22 17:16 Urine Glucose (UA) 4+ (Normal) H 09/10/22 17:16 Urine Ketones 3+ (Negative) H 09/10/22 17:16 Urine Blood Neg (Negative) 09/10/22 17:16 Urine Nitrate Negative (Negative) 09/10/22 17:16 Urine Bilirubin Neg (Negative) 09/10/22 17:16 Urine Urobilinogen Norm mg/dL (Negative) 09/10/22 17:16 Ur Leukocyte Esterase Negative (Negative) 09/10/22 17:16 Ur Random Sodium 59 mmol/L 09/10/22 17:16 Ur Random Potassium 27 mmol/L 09/10/22 17:16 Ur Random Chloride 46 mmol/L 09/10/22 17:16 Vitals Last Vital Signs Temp 97.9 F 09/13/22 11:26 Pulse 73 09/13/22 11:26 Resp 16 09/13/22 11:26 BP 120/76 09/13/22 11:26 Pulse Ox 96 09/13/22 11:26 O2 Del Method 09/13/22 11:26 O2 Flow Rate 5 09/13/22 09:54 Discharge Plan Discharge Patient Disposition: Home Health Service Condition: Stable Prescriptions: New ferrous gluconate 324 mg (37.5 mg iron) Tablet 324 mg PO BIDWM 30 Days Qty: 60 0RF amoxicillin-pot clavulanate 875-125 mg tablet 1 tab PO Q12H 14 Days Qty: 28 0RF Continued levothyroxine 200 mcg capsule 200 mcg PO DAILY empagliflozin 25 mg tablet 25 mg PO DAILY Rx Instructions: Jariance abiraterone 250 mg tablet 250 mg PO DAILY Qty: 30 0RF Rx Instructions: must be taken on empty stomach, at least 1 hr before or 2 hrs after a meal/food prednisone 5 mg tablet 5 mg PO BID Qty: 60 0RF Discharge Orders: Discharge Order (Routine); Ordered 09/13/22 Ordered By: Jose Jones Referrals: [facility] [Outside] Oswald Perkins DPM [Physician] - 09/23/22 8:30 am Tomasa Brice FNP [Primary Care Provider] - 7-10 days (Office will call you with your appointment.) Discharge Diet: Cardiac and Diabetic Discharge Activity: Increase activity as tolerated and Limit activity as instructed Patient Instructions: Amoxicillin/Clavulanate Potassium (By mouth), Wound Infection (GEN), Opioid Safety Activity Restrictions/Additional Instructions: He is to be nonweightbearing to the left lower extremity.? May heel touch only f or short transfers with a [place] OrthoWedge heel. He is advised to elevate his left foot at all times while resting. Keep the postoperative dressing clean, dry and intact until his follow-up in clinic.? Discharge Attestations Time Spent in Discharge Care*: greater than 30 min Specific Discharge Activities: educating patient, discussing with pcp/other providers, discussing with major case detective/social workers/dc planners, documenting/other paperwork and evaluating patient/reviewing data Status at Discharge: Cognitive status at discharge: cognitively intact , Behavioral status at discharge: cooperative , Functional status at discharge: uses cane/walker , Overall status at discharge: patient is back to baseline Quality Metrics Clinical Quality Measures [ No reported AMI, CVA or VTE this stay] Coding Level of Care Code Acute Chg FW DC note History Comprehensive Exam Comprehensive Medical Decision Making High Complexity Diagnoses Sepsis A41.9 Sepsis acute organ dysfunction status: without acute organ dysfunction Sepsis type: sepsis due to unspecified organism Osteomyelitis M86.18 Osteomyelitis location: other site Osteomyelitis type: other acute Cellulitis of left foot L03.116 Diabetes E11.42 Diabetes mellitus complication detail: with polyneuropathy Diabetes mellitus complication status: with neurologic complications Diabetes mellitus hospice chaplain insulin use: without intermediate use Diabetes mellitus type: type 2
--- NOTE | 2022-09-13 12:06 | PC.SOCIAL ---
Imm update Imm updated with patient at bedside. Copy of page 2 provided. Patient verbalized understanding. Copy in chart initialed, dated and timed.
--- NOTE | 2022-09-13 15:10 | ANE.PACU2 ---
Inpatient post-anesthesia follow up: Airway intact: Yes Vital signs: Temperature 97.9 F Pulse Rate 78 Respiratory Rate 16 Blood Pressure 128/79 Pulse Oximetry 95 Oxygen Delivery Me thod Room Air Oxygen Flow Rate 5 Fraction of Inspir ed Oxygen Hydration adequate: Yes Nausea and vomiting: No Pain level: 1 Mental status: Baseline
== END 2022-09-13 13:00 | disposition home health service (06) | DRG 854 ==
LOC: ER 14:17 → ICU 14:54 → MEDSURG 09-11 13:43
PROVIDERS: Physician Assistant; Podiatrist Foot & Ankle Surgery; Admitting Provider Student in an Organized Health Care Education/Training Program; Emergency Provider Family Medicine; PCP Nurse Practitioner; Visit Provider Student in an Organized Health Care Education/Training Program
PROC: 0Y6Q0Z0 Detachment at Left 1st Toe, Complete, Open Approach (ICD-10-PCS; principal; 2022-09-10 18:00)
PROC: 0JDR0ZZ Extraction of Left Foot Subcutaneous Tissue and Fascia, Open Approach (ICD-10-PCS; CPT 13160; principal; 2022-09-13 12:10)
DX: A41.51 Sepsis due to Escherichia coli [E. coli] (principal); E87.20 Acidosis, unspecified; M86.172 Other acute osteomyelitis, left ankle and foot; J84.9 Interstitial pulmonary disease, unspecified; E11.69 Type 2 diabetes mellitus with other specified complication; L03.032 Cellulitis of left toe; E11.42 Type 2 diabetes mellitus with diabetic polyneuropathy; E11.65 Type 2 diabetes mellitus with hyperglycemia; E11.621 Type 2 diabetes mellitus with foot ulcer; L97.524 Non-pressure chronic ulcer of other part of left foot with necrosis of bone; N28.9 Disorder of kidney and ureter, unspecified; C61 Malignant neoplasm of prostate; E03.9 Hypothyroidism, unspecified; Z87.891 Personal history of nicotine dependence
CPT/HCPCS: 36415; 36416; 71045; 80053; 80061; 81003; 82436; 82607; 82746; 82962; 83036; 83540; 83550; 83605; 83735; 84100; 84133; 84145; 84300; 84439; 84443; 84481; 85025; 85610; 85651; 85730; 86140; 86403; 87040; 87070; 87176; 87205; 87641; 88305; 88311; 93005; 94664; 96365; 96372; 97760; 99285; J1815; J2543; J2704; J3010; J3370; J3490; J7030; J7050; L3260

== ENCOUNTER → 2022-09-10 11:45 | Outpatient (BNVA) | payer OTHER, SELFPAY | PROVIDERS: PCP Nurse Practitioner; Visit Provider Podiatrist Foot & Ankle Surgery | DX: Z01.89 Encounter for other specified special examinations (principal); E11.8 Type 2 diabetes mellitus with unspecified complications; L97.524 Non-pressure chronic ulcer of other part of left foot with necrosis of bone; E11.42 Type 2 diabetes mellitus with diabetic polyneuropathy; L03.116 Cellulitis of left lower limb | CPT/HCPCS: 87070; 87075; 87205 ==

== ENCOUNTER → 2022-09-17 14:38 | Outpatient (BNVA) | payer OTHER, SELFPAY | PROVIDERS: PCP Nurse Practitioner; Visit Provider Podiatrist Foot & Ankle Surgery | DX: Z89.412 Acquired absence of left great toe (principal); E11.621 Type 2 diabetes mellitus with foot ulcer; L97.529 Non-pressure chronic ulcer of other part of left foot with unspecified severity; E11.42 Type 2 diabetes mellitus with diabetic polyneuropathy | CPT/HCPCS: 99024; 99214 ==

== ENCOUNTER → 2022-09-23 08:29 | Outpatient (BNVA) | payer OTHER, SELFPAY | PROVIDERS: PCP Nurse Practitioner; Visit Provider Podiatrist Foot & Ankle Surgery | DX: E11.42 Type 2 diabetes mellitus with diabetic polyneuropathy (principal); Z89.412 Acquired absence of left great toe | CPT/HCPCS: 99213 ==

== ENCOUNTER → 2022-10-07 14:05 | Outpatient (BNVA) | payer OTHER, SELFPAY | PROVIDERS: PCP Nurse Practitioner; Visit Provider Podiatrist Foot & Ankle Surgery | DX: E11.42 Type 2 diabetes mellitus with diabetic polyneuropathy (principal); E11.621 Type 2 diabetes mellitus with foot ulcer; L97.522 Non-pressure chronic ulcer of other part of left foot with fat layer exposed; M86.9 Osteomyelitis, unspecified; Z89.412 Acquired absence of left great toe | CPT/HCPCS: 11042; 73630 ==

== ENCOUNTER → 2022-10-16 11:42 | Outpatient (BNVA) | payer OTHER, SELFPAY | PROVIDERS: PCP Nurse Practitioner; Visit Provider Nurse Practitioner | DX: C61 Malignant neoplasm of prostate (principal) | CPT/HCPCS: 99214 ==

== ENCOUNTER 2022-10-25 09:18 | Day surgery (SDC) | payer OTHER, SELFPAY ==
[2022-10-24 11:19] VITALS: BMI 23.7
[2022-10-25 10:30] VITALS: BP 131/82; PULSE 100; RESP 17; TEMP 36.4; O2SAT 92
[2022-10-25] MEDS: sodium chloride 0.9% 1,000 ML 30 ML IV (10:42)
--- NOTE | 2022-10-25 10:49 | ANES.PREANE2 ---
Pre-Anesthetic Assessment Height/Weight: Height 1.85 m Weight 81.647 kg Temp Pulse Resp BP Pulse Ox O2 Del Method 97.5 F L 100 17 131/82 92 10/25/22 10:30 10/25/22 10:30 10/25/22 10:30 10/25/22 10:30 10/25/22 10:30 10/25/22 10:30 Preop Diagnosis: Osteomyelitis left first metatarsal Operation Date: 10/25/22 11:05 Proposed Procedures p Incision and debridement down to bone left foot 37965,L97.524(Left) - Oswald Perkins DPM Familial anesthetic complications: None Was Beta Sanam taken within 24 hours: N/A Was Clonidine taken within 24 hours: N/A Last intake: Intake Last Liquid Date 10/24/22 Last Liquid Time 17:30 Last Solid Date 10/24/22 Last Solid Time 17:00 Social No alcohol and No tobacco Exam alert, oriented x 3, clear to auscultation bilaterally and regular rate & rhythm Airway Mallampati: Class III Dentition: other (missing) Metabolic Diabetes Mellitus and Thyroid Disease Anesthetic Plan ASA status: 3 Anesthesia: MAC Risk of > 500 ml blood loss (7ml/kg in children): No Medications/Allergies Home Medications Medication Instructions Recorded Confirmed Last Taken Type levothyroxine 200 mcg capsule 200 mcg PO DAILY 07/24/22 10/25/22 10/25/22 History abiraterone 250 mg tablet 250 mg PO DAILY #30 tabs 08/28/22 10/25/22 10/25/22 Rx empagliflozin 25 mg tablet 25 mg PO DAILY 08/28/22 10/24/22 10/24/22 History prednisone 5 mg tablet 5 mg PO BID #60 tabs 08/28/22 10/24/22 10/24/22 Rx glipizide 10 mg tablet 10 mg PO BID 10/21/22 10/24/22 10/24/22 History prochlorperazine maleate 10 mg 10 mg PO Q6H PRN nausea and 10/21/22 10/24/22 Unknown Rx tablet (Compazine) vomiting #30 tabs Allergies Allergy/AdvReac Type Severity Reaction Status Date / Time No Known Allergies Allergy Verified 10/25/22 10:26 Current Medications Generic Name Dose Route Start Last Admin Trade Name Freq PRN Reason Stop Dose Admin Sodium Chloride 1,000 mls @ 30 mls/hr 10/25/22 10:30 10/25/22 10:42 Sodium Chloride 0.9% IV 10/26/22 10:29 30 mls/hr .Q24H RAFIA Administration PFSH Anesthesia Medical History Diabetes Diabetic peripheral neuropathy associated with type 2 diabetes mellitus Fatty liver Interstitial lung disease Non-pressure chronic ulcer of other part of left foot with necrosis of bone Prostate cancer Prostate cancer Surgical History Hx of tonsillectomy 1979 Family History Mother Hypertension Father Dementia CAD (coronary artery disease) Cancer Prostate Hyperlipidemia Denies family history of Diabetes Clotting disorder Psychiatric illness Chronic kidney disease (CKD) Suicide Anesthesia complication Bleeding disorder Lung disease Stroke Social History Smoking and tobacco status: former smoker (smoked x 10 years) Alcohol intake: never Adopted: No Caregiver/support person: No Data Anesthesia Cardiac Studies: No Data to Display
[2022-10-25 10:54] LABS: Glucose Point of Care 129 mg/dL (70-110)
--- NOTE | 2022-10-25 11:07 | W.PM.OPSUD ---
Surgery/Procedure H&P Update DATE OF PROCEDURE: October 25, 2022 DATE H&P PERFORMED: 10/21/22 CHANGES TO PREVIOUS DOCUMENTATION: none PREOP DIAGNOSIS: Osteomyelitis left first metatarsal PLANNED PROCEDURE: Operation Date: 10/25/22 11:05 Proposed Procedures p Incision and debridement down to bone left foot 80999,V94.524(Left) - Oswald Perkins DPM
[2022-10-25] MEDS: clindamycin 600 MG/50 ML PREMIX 100 MG IV (11:17)
[2022-10-25] MEDS: lidocaine 2% INJ 20 mL INJECTION (11:36)
--- NOTE | 2022-10-25 11:50 | P.OP_ITS ---
Operative Report Date of procedure: October 25, 2022 Pre-op diagnosis: Preop Diagnosis Osteomyelitis left first metatarsal Post-op diagnosis: Osteomyelitis left first metatarsal Post-op findings: Devitalized bone left first metatarsal head Procedure done: Incision of bone cortex, left foot Implants: 3-0 Vicryl, 4-0 Vicryl, 4-0 nylon Specimens removed/disposition: Head of the left first metatarsal sent to microbiology for gram stain and culture. Pathology: None Surgeon: Oswald Perkins D.P.M. 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 Date of operation 09/10/2022 with primary delayed closure performed 09/13/2022. Dehiscence of the left hallux amputation stump with exposed first metatarsal head.? X-ray 3 views demonstrates erosive changes at the first metatarsal head consistent with osteomyelitis.? Recommended excision of first metatarsal head as well as sesamoids patient is agreeable we will proceed with this on 10/25/2022.? I reviewed at length with the patient, the risks, potential complications, benefits, alternatives, expectations, and typical outcomes associated with the surgery. The risks and potential complications were explained in detail, including but not limited to infection, wound dehiscence or soft tissue complications, bleeding and hematoma, chronic edema, neuritis or nerve damage producing numbness or chronic pain, CRPS, failure to relieve pain or worsening pain, thick / painful / unsightly scar, limited motion / stiffness, malposition, delayed union, malunion, or nonunion, fracture, reaction to implants, anesthetic complications, venous thromboembolism, and deformity recurrence.? I discussed the notion of no regrets with the patient as it pertains to complications and outcomes. The patient seemed to understand the nature of the proposed care and required convalescence. They asked appropriate questions, answered to their satisfaction. They are aware no guarantees can be made as to a satisfactory outcome and they understand there may be other possible unforeseen complications or outcomes not listed here that will be treated accordingly if they arise. There were no written or implied guarantees given to the patient. They gave informed consent to proceed. Excision of first metatarsal head, fibular and tibial sesamoid left foot planned on outpatient MAC anesthesia 10/25/2022. Procedure: Under mild sedation the patient was brought to the operating room and remained on the gurney in supine position. A timeout was performed. Anesthesia was then administered by the anesthesia service. Local anesthesia was injected by myself consisting of 20 cc of one-to-one mixture 0.25% Marcaine and 1% lidocaine plain in a left Macdonald block fashion. Well-padded pneumatic tourniquet was applied to the left ankle. The left lower extremity was then scrubbed, prepped and draped utilizing normal aseptic technique. No Esmarch bandage was utilized secondary to infection. The left ankle tourniquet was inflated to 250 mmHg. Attention was directed to the left foot where a sinus tract was appreciated that communicated directly to bone with exposed bone at the first metatarsal head, was able to visualize articular surface and devitalized cortex of the head of the first metatarsal left foot. A linear incision was made over the medial and distal aspect of the left first metatarsal. Incision was made through all layers of skin, subcutaneous tissue down the periosteum which was incised and reflected both dorsally and plantarly exposing the head of the left first metatarsal. There was devitalized bone with poor density and dusky rincon appearance with erosive changes at the dorsal medial aspect and dorsal central portion of the left first metatarsal bone which was curettaged and debrided. Decision was made to resect the distal portion of the first metatarsal at the metaphyseal diaphyseal flare which was done with osteotome and mallet. The incision was irrigated with copious amounts of sterile saline solution. The ti bial and fibular sesamoid which were in direct articulation of the first metatarsal head had a off white/yellow appearance, decision was made to excise both the tibial and fibular sesamoids sharply which were passed from the operative field. Further irrigation was performed. No further devitalized soft tissue was appreciated postdebridement. The wound was then closed in a layered fashion with periosteum reapproximated with 3-0 Vicryl, subcutaneous tissue was then reapproximated with 4-0 Vicryl and skin with nylon. The incision was well coapted with margins well approximated without tension. There was adequate soft tissue and viable margins appreciated on all layers. The incision was dressed with Adaptic, sterile 4 x 4's, Kerlix and Jonathan wrap followed by application of a OrthoWedge heel shoe to the left lower extremity. Tourniquet was deflated and a prompt hyperemic response was noted to the distal digits of the left foot. Patient tolerated the procedure and anesthesia well and was transferred to the PACU with vital signs stable and vascular status intact. Following a period of postoperative monitoring he will be discharged home on Bactrim DS to be taken twice daily. He is to elevate and rest his left foot. Was given at home care instructions as well as follow-up in podiatry clinic next week.
[2022-10-25 11:52] VITALS: BP 94/64; PULSE 88; RESP 18; TEMP 36.2; O2SAT 97
[2022-10-25 11:56] VITALS: BP 110/65; PULSE 91; RESP 18; O2SAT 97
[2022-10-25 12:00] VITALS: BP 96/68; PULSE 89; RESP 18; TEMP 36.8; O2SAT 95
[2022-10-25 12:05] VITALS: BP 106/69; PULSE 82; RESP 14; TEMP 36.7; O2SAT 96
[2022-10-25 12:45] VITALS: BP 114/72; PULSE 78; RESP 16; TEMP 36.8; O2SAT 97
--- NOTE | 2022-10-25 14:41 | ANE.PACU2 ---
Inpatient post-anesthesia follow up: Airway intact: Yes Vital signs: Temperature 98.3 F Pulse Rate 78 Respiratory Rate 16 Blood Pressure 114/72 Pulse Oximetry 97 Oxygen Delivery Me thod Room Air Oxygen Flow Rate 6 Fraction of Inspir ed Oxygen Hydration adequate: Yes Nausea and vomiting: No Pain level: 1 Mental status: Baseline
== END 2022-10-25 13:05 | disposition home or self-care (01) ==
PROVIDERS: PCP Nurse Practitioner; Visit Provider Podiatrist Foot & Ankle Surgery
PROC: (CPT 28005; principal; 2022-10-25 10:55)
DX: M86.8X7 Other osteomyelitis, ankle and foot (principal); E11.42 Type 2 diabetes mellitus with diabetic polyneuropathy; Z87.891 Personal history of nicotine dependence; Z85.46 Personal history of malignant neoplasm of prostate
CPT/HCPCS: 28005; 36416; 82962; 87070; 87176; 87205; J2704; J3490; J7030

== ENCOUNTER 2022-10-29 13:06 | Outpatient (CLI) | payer OTHER, SELFPAY ==
[2022-10-29 13:25] LABS: Basophils % 0.4 %; Eosinophils # 0.1 10^3/uL (0.0-0.8); Eosinophils % 1.1 %; Hematocrit 46.8 % (42.0-52.0); Hemoglobin 15.5 g/dL (11.7-16.6); Lymphocytes # 2.2 10^3/uL (0.8-4.8); Lymphocytes % 24.1 %; Mean Corpuscular HGB Conc 33.1 g/dL (30.0-36.0); Mean Corpuscular Hemoglobin 29.5 pg (28.0-34.0); Mean Platelet Volume 9.9 fL (7.4-10.4); Monocytes # 0.4 10^3/uL (0.2-0.9); Monocytes % 4.3 %; Neutrophils # 6.28 10^3/uL (1.8-7.7); Neutrophils % 69.9 %; Nucleated Red Blood Cells % 0 %; Platelet Count 265 10^3/cmm (130-400); Red Blood Count 5.26 10^6/uL (4.1-5.3); Red Cell Distribution Width 13.3 % (12.1-15.1)
[2022-10-29 13:56] LABS: Alanine Aminotransferase 9 U/L (0-41); Albumin Level 4.1 g/dL (3.5-5.2); Alkaline Phosphatase 107 U/L (40-130); Anion Gap 17.3 (5-19); Aspartate Amino Transferase 14 U/L (0-40); Blood Urea Nitrogen 23 mg/dL (8-23); Calcium 9.4 mg/dL (8.5-10.5); Carbon Dioxide 23 mmol/L (22-29); Chloride 102 mmol/L (98-107); Globulin 3.8 g/dL (1.3-4.6); Glucose 200 mg/dL (65-115); Osmolality Calculated 295 mOsm/kg (285-295); Potassium 4.3 mmol/L (3.5-5.1); Sodium 138 mmol/L (136-145); Testosterone Total 2.5 ng/dL (193-740); Total Bilirubin 0.3 mg/dL (0.15-1.2); Total Protein 7.9 g/dL (6.6-8.7)
== END 2022-10-29 13:07 | disposition home or self-care (01) ==
LOC: LAB 13:09
PROVIDERS: PCP Nurse Practitioner; Visit Provider Internal Medicine Hematology & Oncology
DX: C61 Malignant neoplasm of prostate (principal); C79.51 Secondary malignant neoplasm of bone
CPT/HCPCS: 80053; 84153; 84403; 85025

== ENCOUNTER 2022-11-05 13:35 | Outpatient (CLI) | payer OTHER, SELFPAY ==
[2022-11-05 14:05] LABS: Basophils # 0.1 10^3/uL (0.0-0.1); Basophils % 0.4 %; Eosinophils # 0.1 10^3/uL (0.0-0.8); Eosinophils % 0.6 %; Hematocrit 49.5 % (42.0-52.0); Hemoglobin 16.7 g/dL (11.7-16.6); Lymphocytes # 2.8 10^3/uL (0.8-4.8); Lymphocytes % 21.3 %; Mean Corpuscular HGB Conc 33.7 g/dL (30.0-36.0); Mean Corpuscular Hemoglobin 29.9 pg (28.0-34.0); Mean Corpuscular Volume 88.6 fl (80-94); Mean Platelet Volume 9.9 fL (7.4-10.4); Monocytes # 0.5 10^3/uL (0.2-0.9); Monocytes % 3.7 %; Neutrophils # 9.48 10^3/uL (1.8-7.7); Neutrophils % 73.5 %; Nucleated Red Blood Cells % 0 %; Platelet Count 254 10^3/cmm (130-400); Red Blood Count 5.59 10^6/uL (4.1-5.3); White Blood Count 12.9 10^3/uL (4.0-10.0)
[2022-11-05 14:37] LABS: Alanine Aminotransferase 10 U/L (0-41); Albumin Level 4.4 g/dL (3.5-5.2); Alkaline Phosphatase 119 U/L (40-130); Anion Gap 19.8 (5-19); Aspartate Amino Transferase 16 U/L (0-40); Blood Urea Nitrogen 30 mg/dL (8-23); Calcium 9.7 mg/dL (8.5-10.5); Carbon Dioxide 25 mmol/L (22-29); Chloride 94 mmol/L (98-107); Globulin 3.9 g/dL (1.3-4.6); Glucose 207 mg/dL (65-115); Osmolality Calculated 290 mOsm/kg (285-295); Potassium 4.8 mmol/L (3.5-5.1); Sodium 134 mmol/L (136-145); Testosterone Total 2.5 ng/dL (193-740); Total Bilirubin 0.3 mg/dL (0.15-1.2); Total Protein 8.3 g/dL (6.6-8.7)
== END 2022-11-05 13:36 | disposition home or self-care (01) ==
LOC: LAB 13:38
PROVIDERS: Internal Medicine Hematology & Oncology; PCP Nurse Practitioner; Visit Provider Urology
DX: C61 Malignant neoplasm of prostate (principal); C79.51 Secondary malignant neoplasm of bone
CPT/HCPCS: 36415; 80053; 84153; 84403; 85025

== ENCOUNTER 2022-11-05 14:00 | Oncology outpatient (recurring) (ONCR) | payer OTHER, SELFPAY ==
[2022-10-16 10:06] LABS: Basophils % 0.3 %; Eosinophils # 0.2 10^3/uL (0.0-0.8); Eosinophils % 2.3 %; Hematocrit 45.2 % (42.0-52.0); Hemoglobin 15.1 g/dL (11.7-16.6); Lymphocytes # 2.8 10^3/uL (0.8-4.8); Lymphocytes % 31.6 %; Mean Corpuscular HGB Conc 33.4 g/dL (30.0-36.0); Mean Corpuscular Hemoglobin 29.7 pg (28.0-34.0); Mean Platelet Volume 10.1 fL (7.4-10.4); Monocytes # 0.5 10^3/uL (0.2-0.9); Monocytes % 5.3 %; Neutrophils # 5.22 10^3/uL (1.8-7.7); Neutrophils % 60.2 %; Nucleated Red Blood Cells % 0 %; Platelet Count 206 10^3/cmm (130-400); Red Blood Count 5.08 10^6/uL (4.1-5.3); White Blood Count 8.7 10^3/uL (4.0-10.0)
[2022-10-16 10:31] LABS: Alanine Aminotransferase 8 U/L (0-41); Albumin Level 4.1 g/dL (3.5-5.2); Alkaline Phosphatase 93 U/L (40-130); Anion Gap 17.9 (5-19); Aspartate Amino Transferase 13 U/L (0-40); Blood Urea Nitrogen 13 mg/dL (8-23); Calcium 9.7 mg/dL (8.5-10.5); Carbon Dioxide 25 mmol/L (22-29); Chloride 100 mmol/L (98-107); Globulin 3.3 g/dL (1.3-4.6); Glucose 189 mg/dL (65-115); Osmolality Calculated 293 mOsm/kg (285-295); Potassium 3.9 mmol/L (3.5-5.1); Sodium 139 mmol/L (136-145); Total Bilirubin 0.4 mg/dL (0.15-1.2); Total Protein 7.4 g/dL (6.6-8.7)
[2022-10-16] MEDS: leuprolide 22.5 mg Kit IM (12:44)
== END 2022-11-09 23:59 | disposition home or self-care (01) ==
PROVIDERS: PCP Nurse Practitioner; Visit Provider Internal Medicine Hematology & Oncology
DX: C61 Malignant neoplasm of prostate
CPT/HCPCS: 11044; 73630; 80053; 84153; 85025; 87070; 87075; 87077; 87186; 87205; 96402; 99024; 99205; 99215; J9217

== ENCOUNTER → 2022-11-07 13:26 | Outpatient (BNVA) | payer OTHER, SELFPAY | PROVIDERS: PCP Nurse Practitioner; Visit Provider Podiatrist Foot & Ankle Surgery | DX: Z98.890 Other specified postprocedural states (principal); E11.42 Type 2 diabetes mellitus with diabetic polyneuropathy; Z89.412 Acquired absence of left great toe; M86.9 Osteomyelitis, unspecified; L97.522 Non-pressure chronic ulcer of other part of left foot with fat layer exposed; M86.172 Other acute osteomyelitis, left ankle and foot; E11.621 Type 2 diabetes mellitus with foot ulcer | CPT/HCPCS: 99024 ==

== ENCOUNTER → 2022-11-14 14:41 | Outpatient (BNVA) | payer OTHER, SELFPAY | PROVIDERS: PCP Nurse Practitioner; Visit Provider Podiatrist Foot & Ankle Surgery | DX: Z98.890 Other specified postprocedural states (principal); S92.322A Displaced fracture of second metatarsal bone, left foot, initial encounter for closed fracture; X58.XXXA Exposure to other specified factors, initial encounter; Z89.412 Acquired absence of left great toe | CPT/HCPCS: 73630; 99214 ==

== ENCOUNTER 2022-11-14 16:06 | Outpatient (CLI) | payer OTHER, SELFPAY | END 2022-11-14 16:07 | disposition home or self-care (01) | LOC: SPT 16:06 | PROVIDERS: PCP Nurse Practitioner; Visit Provider Podiatrist Foot & Ankle Surgery | DX: Z46.89 Encounter for fitting and adjustment of other specified devices (principal); S92.322D Displaced fracture of second metatarsal bone, left foot, subsequent encounter for fracture with routine healing; X58.XXXD Exposure to other specified factors, subsequent encounter | CPT/HCPCS: 97760; L4361 ==

== ENCOUNTER 2022-12-02 09:30 | Oncology outpatient (recurring) (ONCR) | payer OTHER, SELFPAY ==
[2022-11-12 13:55] LABS: Basophils % 0.4 %; Eosinophils # 0.1 10^3/uL (0.0-0.8); Eosinophils % 0.5 %; Hemoglobin 14.7 g/dL (11.7-16.6); Lymphocytes # 2.3 10^3/uL (0.8-4.8); Lymphocytes % 23.7 %; Mean Corpuscular HGB Conc 33.4 g/dL (30.0-36.0); Mean Corpuscular Hemoglobin 29.9 pg (28.0-34.0); Mean Corpuscular Volume 89.4 fl (80-94); Monocytes # 0.3 10^3/uL (0.2-0.9); Monocytes % 3.4 %; Neutrophils # 6.85 10^3/uL (1.8-7.7); Neutrophils % 71.7 %; Nucleated Red Blood Cells % 0 %; Platelet Count 199 10^3/cmm (130-400); Red Blood Count 4.92 10^6/uL (4.1-5.3); Red Cell Distribution Width 12.9 % (12.1-15.1); White Blood Count 9.6 10^3/uL (4.0-10.0)
[2022-11-12 14:29] LABS: Alanine Aminotransferase 14 U/L (0-41); Alkaline Phosphatase 108 U/L (40-130); Anion Gap 15.4 (5-19); Aspartate Amino Transferase 14 U/L (0-40); Blood Urea Nitrogen 23 mg/dL (8-23); Calcium 9.1 mg/dL (8.5-10.5); Carbon Dioxide 26 mmol/L (22-29); Chloride 98 mmol/L (98-107); Globulin 3.3 g/dL (1.3-4.6); Glucose 246 mg/dL (65-115); Osmolality Calculated 292 mOsm/kg (285-295); Potassium 4.4 mmol/L (3.5-5.1); Sodium 135 mmol/L (136-145); Total Bilirubin 0.3 mg/dL (0.15-1.2); Total Protein 7.3 g/dL (6.6-8.7)
[2022-11-12 14:32] LABS: Testosterone Total < 2.5 ng/dL (193-740)
[2022-11-19 10:08] LABS: Basophils % 0.3 %; Eosinophils # 0.2 10^3/uL (0.0-0.8); Eosinophils % 3.3 %; Hematocrit 42.3 % (42.0-52.0); Hemoglobin 14.1 g/dL (11.7-16.6); Lymphocytes # 1.7 10^3/uL (0.8-4.8); Lymphocytes % 22.8 %; Mean Corpuscular HGB Conc 33.3 g/dL (30.0-36.0); Mean Corpuscular Hemoglobin 29.6 pg (28.0-34.0); Mean Corpuscular Volume 88.9 fl (80-94); Mean Platelet Volume 9.5 fL (7.4-10.4); Monocytes # 0.4 10^3/uL (0.2-0.9); Neutrophils # 4.93 10^3/uL (1.8-7.7); Neutrophils % 67.5 %; Nucleated Red Blood Cells % 0 %; Platelet Count 177 10^3/cmm (130-400); Red Blood Count 4.76 10^6/uL (4.1-5.3); Red Cell Distribution Width 13.1 % (12.1-15.1); White Blood Count 7.3 10^3/uL (4.0-10.0)
[2022-11-19 10:51] LABS: Alanine Aminotransferase 18 U/L (0-41); Albumin Level 3.8 g/dL (3.5-5.2); Alkaline Phosphatase 111 U/L (40-130); Anion Gap 17.4 (5-19); Aspartate Amino Transferase 16 U/L (0-40); Blood Urea Nitrogen 25 mg/dL (8-23); Calcium 8.8 mg/dL (8.5-10.5); Carbon Dioxide 27 mmol/L (22-29); Chloride 99 mmol/L (98-107); Globulin 3.5 g/dL (1.3-4.6); Glucose 215 mg/dL (65-115); Osmolality Calculated 299 mOsm/kg (285-295); Potassium 4.4 mmol/L (3.5-5.1); Sodium 139 mmol/L (136-145); Testosterone Total 2.5 ng/dL (193-740); Total Bilirubin 0.3 mg/dL (0.15-1.2); Total Protein 7.3 g/dL (6.6-8.7)
[2022-12-02] MEDS: denosumab 120 mg SDV SUBCUT (11:46)
[2022-12-02 12:16] VITALS: BP 134/87; PULSE 101; RESP 18; TEMP 36.3; O2SAT 99
== END 2022-12-10 23:59 | disposition home or self-care (01) ==
PROVIDERS: Nurse Practitioner; PCP Nurse Practitioner; Visit Provider Internal Medicine Hematology & Oncology
DX: C61 Malignant neoplasm of prostate (principal); C79.51 Secondary malignant neoplasm of bone; C77.8 Secondary and unspecified malignant neoplasm of lymph nodes of multiple regions; C78.6 Secondary malignant neoplasm of retroperitoneum and peritoneum; C78.7 Secondary malignant neoplasm of liver and intrahepatic bile duct; J84.10 Pulmonary fibrosis, unspecified; Z79.52 Long term (current) use of systemic steroids; Z79.818 Long term (current) use of other agents affecting estrogen receptors and estrogen levels; Z79.899 Other long term (current) drug therapy; Z87.891 Personal history of nicotine dependence
CPT/HCPCS: 36415; 73630; 80053; 84153; 84403; 85025; 96372; 96401; 99024; 99213; 99214; J0897

== ENCOUNTER → 2023-01-02 14:24 | Outpatient (BNVA) | payer OTHER, SELFPAY | PROVIDERS: PCP Nurse Practitioner; Visit Provider Podiatrist Foot & Ankle Surgery | DX: Z89.412 Acquired absence of left great toe (principal); E11.42 Type 2 diabetes mellitus with diabetic polyneuropathy; S92.515D Nondisplaced fracture of proximal phalanx of left lesser toe(s), subsequent encounter for fracture with routine healing; X58.XXXD Exposure to other specified factors, subsequent encounter | CPT/HCPCS: 99214 ==

== ENCOUNTER 2023-01-16 11:59 | Oncology outpatient (recurring) (ONCR) | payer OTHER, SELFPAY ==
[2023-01-16 13:05] LABS: Basophils # 0.1 10^3/uL (0.0-0.1); Basophils % 0.5 %; Eosinophils # 0.1 10^3/uL (0.0-0.8); Eosinophils % 0.8 %; Hematocrit 43.2 % (42.0-52.0); Hemoglobin 14.4 g/dL (11.7-16.6); Lymphocytes # 2.2 10^3/uL (0.8-4.8); Lymphocytes % 20.8 %; Mean Corpuscular HGB Conc 33.3 g/dL (30.0-36.0); Mean Corpuscular Hemoglobin 30.4 pg (28.0-34.0); Mean Corpuscular Volume 91.3 fl (80-94); Mean Platelet Volume 9.5 fL (7.4-10.4); Monocytes # 0.5 10^3/uL (0.2-0.9); Monocytes % 4.6 %; Neutrophils # 7.55 10^3/uL (1.8-7.7); Neutrophils % 72.7 %; Nucleated Red Blood Cells % 0 %; Platelet Count 225 10^3/cmm (130-400); Red Blood Count 4.73 10^6/uL (4.1-5.3); Red Cell Distribution Width 13.3 % (12.1-15.1); White Blood Count 10.4 10^3/uL (4.0-10.0)
[2023-01-16 13:31] LABS: Alanine Aminotransferase 15 U/L (0-41); Albumin Level 3.9 g/dL (3.5-5.2); Alkaline Phosphatase 102 U/L (40-130); Aspartate Amino Transferase 17 U/L (0-40); Blood Urea Nitrogen 28 mg/dL (8-23); Calcium 9.1 mg/dL (8.5-10.5); Carbon Dioxide 23 mmol/L (22-29); Chloride 100 mmol/L (98-107); Globulin 3.4 g/dL (1.3-4.6); Glucose 271 mg/dL (65-115); Osmolality Calculated 297 mOsm/kg (285-295); Sodium 136 mmol/L (136-145); Total Bilirubin 0.3 mg/dL (0.15-1.2); Total Protein 7.3 g/dL (6.6-8.7)
[2023-01-16 13:37] LABS: Anion Gap 17.6 (5-19); Potassium 4.6 mmol/L (3.5-5.1)
[2023-01-16] MEDS: denosumab 120 mg SDV SUBCUT (14:46)
[2023-01-16] MEDS: leuprolide 22.5 mg Kit IM (14:49)
== END 2023-02-07 23:59 | disposition home or self-care (01) ==
PROVIDERS: PCP Nurse Practitioner; Visit Provider Internal Medicine Hematology & Oncology
DX: C61 Malignant neoplasm of prostate (principal); Z79.818 Long term (current) use of other agents affecting estrogen receptors and estrogen levels; Z79.52 Long term (current) use of systemic steroids; Z79.899 Other long term (current) drug therapy; C79.51 Secondary malignant neoplasm of bone
CPT/HCPCS: 36415; 80053; 84153; 85025; 96372; 96401; 96402; 99214; J0897; J9217

== ENCOUNTER → 2023-02-13 13:21 | Outpatient (BNVA) | payer OTHER, SELFPAY | PROVIDERS: PCP Nurse Practitioner; Visit Provider Podiatrist Foot & Ankle Surgery | DX: Z89.412 Acquired absence of left great toe (principal); E11.42 Type 2 diabetes mellitus with diabetic polyneuropathy; M86.672 Other chronic osteomyelitis, left ankle and foot; S92.515D Nondisplaced fracture of proximal phalanx of left lesser toe(s), subsequent encounter for fracture with routine healing; X58.XXXD Exposure to other specified factors, subsequent encounter | CPT/HCPCS: 73630; 99214 ==

== ENCOUNTER 2023-02-19 12:35 | Oncology outpatient (recurring) (ONCR) | payer OTHER, SELFPAY ==
[2023-02-19 13:44] LABS: Alanine Aminotransferase 21 U/L (0-41); Albumin Level 3.9 g/dL (3.5-5.2); Alkaline Phosphatase 83 U/L (40-130); Anion Gap 17.3 (5-19); Aspartate Amino Transferase 20 U/L (0-40); Blood Urea Nitrogen 21 mg/dL (8-23); Carbon Dioxide 22 mmol/L (22-29); Chloride 101 mmol/L (98-107); Globulin 3.7 g/dL (1.3-4.6); Glucose 161 mg/dL (65-115); Osmolality Calculated 288 mOsm/kg (285-295); Potassium 4.3 mmol/L (3.5-5.1); Sodium 136 mmol/L (136-145); Total Bilirubin 0.4 mg/dL (0.15-1.2); Total Protein 7.6 g/dL (6.6-8.7)
[2023-02-19] MEDS: denosumab 120 mg SDV SUBCUT (14:35)
== END 2023-03-09 23:59 | disposition home or self-care (01) ==
PROVIDERS: PCP Nurse Practitioner; Visit Provider Internal Medicine Hematology & Oncology
DX: C61 Malignant neoplasm of prostate (principal); Z79.818 Long term (current) use of other agents affecting estrogen receptors and estrogen levels; Z79.52 Long term (current) use of systemic steroids; Z79.899 Other long term (current) drug therapy; C79.51 Secondary malignant neoplasm of bone; C77.8 Secondary and unspecified malignant neoplasm of lymph nodes of multiple regions; C78.6 Secondary malignant neoplasm of retroperitoneum and peritoneum; C78.7 Secondary malignant neoplasm of liver and intrahepatic bile duct; Z87.891 Personal history of nicotine dependence; Z89.412 Acquired absence of left great toe; C79.11 Secondary malignant neoplasm of bladder
CPT/HCPCS: 36415; 80053; 84153; 96372; 99214; J0897

== ENCOUNTER 2023-03-24 11:07 | Oncology outpatient (recurring) (ONCR) | payer OTHER, SELFPAY ==
[2023-03-24 12:11] LABS: Alanine Aminotransferase 20 U/L (0-41); Albumin Level 4.1 g/dL (3.5-5.2); Alkaline Phosphatase 84 U/L (40-130); Anion Gap 15.7 (5-19); Aspartate Amino Transferase 17 U/L (0-40); Blood Urea Nitrogen 25 mg/dL (8-23); Calcium 8.8 mg/dL (8.5-10.5); Carbon Dioxide 26 mmol/L (22-29); Chloride 100 mmol/L (98-107); Glucose 207 mg/dL (65-115); Osmolality Calculated 294 mOsm/kg (285-295); Potassium 4.7 mmol/L (3.5-5.1); Sodium 137 mmol/L (136-145); Total Bilirubin 0.4 mg/dL (0.15-1.2); Total Protein 7.1 g/dL (6.6-8.7)
[2023-03-24] MEDS: denosumab 120 mg SDV SUBCUT (13:23)
[2023-03-24 14:11] LABS: Free T4 Free Thyroxine 1.96 ng/dL (0.82-1.77); Thyroid Stimulating Hormone 0.13 uIU/mL (0.27-4.20)
== END 2023-04-09 23:59 | disposition home or self-care (01) ==
PROVIDERS: Nurse Practitioner; PCP Nurse Practitioner; Visit Provider Internal Medicine Hematology & Oncology
DX: C61 Malignant neoplasm of prostate (principal); Z79.818 Long term (current) use of other agents affecting estrogen receptors and estrogen levels; Z79.52 Long term (current) use of systemic steroids; Z79.899 Other long term (current) drug therapy; C79.51 Secondary malignant neoplasm of bone; C77.8 Secondary and unspecified malignant neoplasm of lymph nodes of multiple regions; C78.6 Secondary malignant neoplasm of retroperitoneum and peritoneum; C78.7 Secondary malignant neoplasm of liver and intrahepatic bile duct; Z87.891 Personal history of nicotine dependence; Z89.412 Acquired absence of left great toe; E03.9 Hypothyroidism, unspecified; E11.9 Type 2 diabetes mellitus without complications; Z79.84 Long term (current) use of oral hypoglycemic drugs
CPT/HCPCS: 80053; 84153; 84439; 84443; 96372; 99214; J0897

== ENCOUNTER → 2023-04-08 15:14 | Outpatient (BNVA) | payer OTHER, SELFPAY | PROVIDERS: PCP Nurse Practitioner; Visit Provider Podiatrist Foot & Ankle Surgery | DX: Z89.412 Acquired absence of left great toe (principal); E11.42 Type 2 diabetes mellitus with diabetic polyneuropathy; L60.3 Nail dystrophy; L97.512 Non-pressure chronic ulcer of other part of right foot with fat layer exposed; E11.621 Type 2 diabetes mellitus with foot ulcer | CPT/HCPCS: 99214 ==

== ENCOUNTER → 2023-04-16 13:52 | Outpatient (BNVA) | payer OTHER, SELFPAY | PROVIDERS: PCP Nurse Practitioner; Visit Provider Podiatrist Foot & Ankle Surgery | DX: E11.42 Type 2 diabetes mellitus with diabetic polyneuropathy (principal); E11.621 Type 2 diabetes mellitus with foot ulcer; Z89.412 Acquired absence of left great toe; L60.3 Nail dystrophy; L97.512 Non-pressure chronic ulcer of other part of right foot with fat layer exposed | CPT/HCPCS: 99214 ==

== ENCOUNTER 2023-04-21 12:41 | Oncology outpatient (recurring) (ONCR) | payer OTHER, SELFPAY ==
[2023-04-21 13:00] VITALS: BP 134/85; PULSE 110; RESP 18; TEMP 35.8; O2SAT 95
[2023-04-21] MEDS: denosumab 120 mg SDV SUBCUT (13:06)
[2023-04-21] MEDS: leuprolide 22.5 mg Kit IM (13:20)
== END 2023-05-09 23:59 | disposition home or self-care (01) ==
PROVIDERS: PCP Nurse Practitioner; Visit Provider Internal Medicine Hematology & Oncology
DX: C61 Malignant neoplasm of prostate (principal); C79.51 Secondary malignant neoplasm of bone
CPT/HCPCS: 96372; 96401; J0897; J9217

== ENCOUNTER → 2023-05-20 12:58 | Outpatient (BNVA) | payer OTHER, SELFPAY | PROVIDERS: PCP Nurse Practitioner; Visit Provider Podiatrist Foot & Ankle Surgery | DX: Z89.412 Acquired absence of left great toe (principal); E11.42 Type 2 diabetes mellitus with diabetic polyneuropathy; L97.511 Non-pressure chronic ulcer of other part of right foot limited to breakdown of skin; L97.521 Non-pressure chronic ulcer of other part of left foot limited to breakdown of skin; E11.621 Type 2 diabetes mellitus with foot ulcer | CPT/HCPCS: 99214 ==

== ENCOUNTER 2023-05-21 12:50 | Oncology outpatient (recurring) (ONCR) | payer OTHER, SELFPAY ==
[2023-05-21] MEDS: denosumab 120 mg SDV SUBCUT (13:25)
[2023-05-21 13:28] VITALS: BP 126/83; PULSE 104; RESP 16; TEMP 36.8; O2SAT 95
== END 2023-06-09 23:59 | disposition home or self-care (01) ==
PROVIDERS: PCP Nurse Practitioner; Visit Provider Internal Medicine Hematology & Oncology
DX: C61 Malignant neoplasm of prostate (principal)
CPT/HCPCS: 96372; J0897

== ENCOUNTER → 2023-06-05 10:00 | Outpatient (BNVA) | payer OTHER, SELFPAY | PROVIDERS: PCP Nurse Practitioner; Visit Provider Podiatrist Foot & Ankle Surgery | DX: Z89.412 Acquired absence of left great toe (principal); E11.42 Type 2 diabetes mellitus with diabetic polyneuropathy; L97.511 Non-pressure chronic ulcer of other part of right foot limited to breakdown of skin; L97.521 Non-pressure chronic ulcer of other part of left foot limited to breakdown of skin | CPT/HCPCS: 99213 ==

== ENCOUNTER 2023-06-24 15:09 | Oncology outpatient (recurring) (ONCR) | payer OTHER, SELFPAY ==
[2023-06-24 15:20] VITALS: BP 125/80; PULSE 100; RESP 17; TEMP 36.6; O2SAT 96
[2023-06-24] MEDS: denosumab 120 mg SDV SUBCUT (15:25)
[2023-06-24 15:28] VITALS: BP 125/80; PULSE 101; RESP 17; TEMP 36.6; O2SAT 96
== END 2023-07-10 23:59 | disposition home or self-care (01) ==
PROVIDERS: PCP Nurse Practitioner; Visit Provider Internal Medicine Hematology & Oncology
DX: C61 Malignant neoplasm of prostate (principal); C79.51 Secondary malignant neoplasm of bone
CPT/HCPCS: 96372; J0897

== ENCOUNTER → 2023-06-25 12:46 | Outpatient (BNVA) | payer OTHER, SELFPAY | PROVIDERS: PCP Nurse Practitioner; Visit Provider Podiatrist Foot & Ankle Surgery | DX: Z89.412 Acquired absence of left great toe (principal); E11.42 Type 2 diabetes mellitus with diabetic polyneuropathy; L97.511 Non-pressure chronic ulcer of other part of right foot limited to breakdown of skin; L97.521 Non-pressure chronic ulcer of other part of left foot limited to breakdown of skin; E11.621 Type 2 diabetes mellitus with foot ulcer | CPT/HCPCS: 99214 ==

== ENCOUNTER → 2023-07-09 12:50 | Outpatient (BNVA) | payer OTHER, SELFPAY | PROVIDERS: PCP Nurse Practitioner; Visit Provider Podiatrist Foot & Ankle Surgery | DX: Z89.412 Acquired absence of left great toe (principal); E11.42 Type 2 diabetes mellitus with diabetic polyneuropathy; E11.621 Type 2 diabetes mellitus with foot ulcer; L97.511 Non-pressure chronic ulcer of other part of right foot limited to breakdown of skin; L97.521 Non-pressure chronic ulcer of other part of left foot limited to breakdown of skin | CPT/HCPCS: 99214 ==

== ENCOUNTER 2023-07-23 10:45 | Oncology outpatient (recurring) (ONCR) | payer OTHER, SELFPAY ==
[2023-07-23 10:49] VITALS: BP 137/81; PULSE 92; RESP 18; TEMP 36.1; O2SAT 94
[2023-07-23 11:10] LABS: Basophils # 0.1 10^3/uL (0.0-0.1); Basophils % 0.5 %; Eosinophils # 0.2 10^3/uL (0.0-0.8); Lymphocytes % 17.3 %; Mean Corpuscular HGB Conc 33.6 g/dL (30-55); Mean Corpuscular Hemoglobin 31.3 pg (27-33); Mean Corpuscular Volume 93.2 fl (82-101); Mean Platelet Volume 9.3 fL (7.4-10.4); Monocytes # 0.6 10^3/uL (0.2-0.9); Monocytes % 4.8 %; Neutrophils # 8.51 10^3/uL (1.8-7.7); Nucleated Red Blood Cells % 0 %; Platelet Count 201 10^3/cmm (157-399); Red Blood Count 4.83 10^6/uL (3.85-5.65); Red Cell Distribution Width 12.8 % (12.1-15.1); White Blood Count 11.37 10^3/uL (3.29-11.43)
[2023-07-23 11:28] LABS: Estmated Average Glucose 197; Hemoglobin A1C 8.5 % (4.0-6.0)
[2023-07-23 11:34] LABS: Alanine Aminotransferase 34 U/L (0-41); Albumin Level 4.2 g/dL (3.5-5.2); Alkaline Phosphatase 77 U/L (40-130); Anion Gap 15.5 (5-19); Aspartate Amino Transferase 24 U/L (0-40); Blood Urea Nitrogen 23 mg/dL (8-23); Calcium 8.9 mg/dL (8.5-10.5); Carbon Dioxide 25 mmol/L (22-29); Chloride 103 mmol/L (98-107); Globulin 3.1 g/dL (1.3-4.6); Glucose 284 mg/dL (65-115); Osmolality Calculated 302 mOsm/kg (285-295); Potassium 4.5 mmol/L (3.5-5.1); Sodium 139 mmol/L (136-145); Testosterone Total 2.5 ng/dL (193-740); Total Bilirubin 0.5 mg/dL (0.15-1.2); Total Protein 7.3 g/dL (6.6-8.7)
[2023-07-23] MEDS: denosumab 120 mg SDV SUBCUT (13:04)
[2023-07-23] MEDS: leuprolide 22.5 mg Kit IM (13:05)
== END 2023-08-09 23:59 | disposition home or self-care (01) ==
PROVIDERS: Nurse Practitioner; PCP Nurse Practitioner; Visit Provider Internal Medicine Hematology & Oncology
DX: C61 Malignant neoplasm of prostate (principal); Z79.818 Long term (current) use of other agents affecting estrogen receptors and estrogen levels; Z79.52 Long term (current) use of systemic steroids; Z79.899 Other long term (current) drug therapy; E11.8 Type 2 diabetes mellitus with unspecified complications; S91.109A Unspecified open wound of unspecified toe(s) without damage to nail, initial encounter; C77.8 Secondary and unspecified malignant neoplasm of lymph nodes of multiple regions; C78.6 Secondary malignant neoplasm of retroperitoneum and peritoneum; C78.7 Secondary malignant neoplasm of liver and intrahepatic bile duct; K76.89 Other specified diseases of liver; J43.9 Emphysema, unspecified; J84.10 Pulmonary fibrosis, unspecified; E11.65 Type 2 diabetes mellitus with hyperglycemia; Z79.84 Long term (current) use of oral hypoglycemic drugs; Z87.891 Personal history of nicotine dependence; Z98.890 Other specified postprocedural states; Z89.412 Acquired absence of left great toe; M86.9 Osteomyelitis, unspecified; L97.522 Non-pressure chronic ulcer of other part of left foot with fat layer exposed; X58.XXXA Exposure to other specified factors, initial encounter; E11.621 Type 2 diabetes mellitus with foot ulcer; L97.524 Non-pressure chronic ulcer of other part of left foot with necrosis of bone; E11.42 Type 2 diabetes mellitus with diabetic polyneuropathy; L03.116 Cellulitis of left lower limb; M86.172 Other acute osteomyelitis, left ankle and foot; L97.511 Non-pressure chronic ulcer of other part of right foot limited to breakdown of skin; L97.521 Non-pressure chronic ulcer of other part of left foot limited to breakdown of skin; Z51.11 Encounter for antineoplastic chemotherapy
CPT/HCPCS: 36415; 80053; 83036; 84153; 84403; 85025; 96372; 96402; 99213; 99214; J0897; J9217

== ENCOUNTER → 2023-08-11 14:30 | Outpatient (BNVA) | payer OTHER, SELFPAY | PROVIDERS: PCP Nurse Practitioner; Visit Provider Podiatrist Foot & Ankle Surgery | DX: L97.521 Non-pressure chronic ulcer of other part of left foot limited to breakdown of skin (principal); E11.621 Type 2 diabetes mellitus with foot ulcer; L97.511 Non-pressure chronic ulcer of other part of right foot limited to breakdown of skin; E11.42 Type 2 diabetes mellitus with diabetic polyneuropathy | CPT/HCPCS: 28010; 99213 ==

== ENCOUNTER 2023-08-20 13:45 | Oncology outpatient (recurring) (ONCR) | payer OTHER, SELFPAY ==
[2023-08-20 14:16] VITALS: BP 132/83; PULSE 109
[2023-08-20] MEDS: denosumab 120 mg SDV SUBCUT (14:20)
== END 2023-09-09 23:59 | disposition home or self-care (01) ==
LOC: ONCMED 13:45
PROVIDERS: PCP Nurse Practitioner; Visit Provider Internal Medicine Hematology & Oncology
DX: C61 Malignant neoplasm of prostate (principal); Z51.11 Encounter for antineoplastic chemotherapy; C79.51 Secondary malignant neoplasm of bone
CPT/HCPCS: 96372; J0897

== ENCOUNTER → 2023-09-03 13:23 | Outpatient (BNVA) | payer OTHER, SELFPAY | PROVIDERS: PCP Nurse Practitioner; Visit Provider Podiatrist Foot & Ankle Surgery | DX: E11.42 Type 2 diabetes mellitus with diabetic polyneuropathy (principal); L97.511 Non-pressure chronic ulcer of other part of right foot limited to breakdown of skin; L97.521 Non-pressure chronic ulcer of other part of left foot limited to breakdown of skin; M20.41 Other hammer toe(s) (acquired), right foot; M20.42 Other hammer toe(s) (acquired), left foot; E11.621 Type 2 diabetes mellitus with foot ulcer | CPT/HCPCS: 99213 ==

== ENCOUNTER 2023-09-17 13:32 | Oncology outpatient (recurring) (ONCR) | payer OTHER, SELFPAY ==
[2023-09-17 14:31] VITALS: BP 124/72; PULSE 105; RESP 18; TEMP 36.8; O2SAT 98
[2023-09-17 14:42] VITALS: BP 120/68; PULSE 75; RESP 18; TEMP 36.6; O2SAT 97
[2023-09-17] MEDS: denosumab 120 mg SDV SUBCUT (14:42)
== END 2023-10-09 23:59 | disposition home or self-care (01) ==
LOC: ONCMED 13:32
PROVIDERS: PCP Nurse Practitioner; Visit Provider Internal Medicine Hematology & Oncology
DX: Z51.11 Encounter for antineoplastic chemotherapy (principal); C79.51 Secondary malignant neoplasm of bone
CPT/HCPCS: 96372; J0897

== ENCOUNTER → 2023-09-18 09:48 | Outpatient (BNVA) | payer OTHER, SELFPAY | PROVIDERS: PCP Nurse Practitioner; Visit Provider Podiatrist Foot & Ankle Surgery | DX: M20.41 Other hammer toe(s) (acquired), right foot (principal); M20.42 Other hammer toe(s) (acquired), left foot; E11.621 Type 2 diabetes mellitus with foot ulcer; L97.511 Non-pressure chronic ulcer of other part of right foot limited to breakdown of skin; L97.521 Non-pressure chronic ulcer of other part of left foot limited to breakdown of skin; E11.42 Type 2 diabetes mellitus with diabetic polyneuropathy | CPT/HCPCS: 28010 ==

== ENCOUNTER → 2023-10-09 10:16 | Outpatient (BNVA) | payer OTHER, SELFPAY | PROVIDERS: PCP Nurse Practitioner; Visit Provider Podiatrist Foot & Ankle Surgery | DX: E11.42 Type 2 diabetes mellitus with diabetic polyneuropathy (principal); L97.511 Non-pressure chronic ulcer of other part of right foot limited to breakdown of skin; L97.521 Non-pressure chronic ulcer of other part of left foot limited to breakdown of skin; M20.41 Other hammer toe(s) (acquired), right foot; M20.42 Other hammer toe(s) (acquired), left foot; E11.621 Type 2 diabetes mellitus with foot ulcer | CPT/HCPCS: 99213 ==

== ENCOUNTER 2023-10-15 10:47 | Oncology outpatient (recurring) (ONCR) | payer OTHER, SELFPAY ==
[2023-10-15 10:55] VITALS: BP 135/82; PULSE 66; RESP 16; TEMP 36.2; O2SAT 95
[2023-10-15 11:07] LABS: Basophils # 0.1 10^3/uL (0.0-0.1); Basophils % 0.6 %; Eosinophils # 0.3 10^3/uL (0.0-0.8); Eosinophils % 3.1 %; Hematocrit 45.9 % (37-53); Lymphocytes # 2.3 10^3/uL (0.8-4.8); Lymphocytes % 24.1 %; Mean Corpuscular HGB Conc 33.3 g/dL (30-55); Mean Corpuscular Hemoglobin 30.6 pg (27-33); Mean Corpuscular Volume 91.8 fl (82-101); Mean Platelet Volume 9.4 fL (7.4-10.4); Monocytes # 0.5 10^3/uL (0.2-0.9); Monocytes % 5.2 %; Neutrophils # 6.46 10^3/uL (1.8-7.7); Neutrophils % 66.5 %; Nucleated Red Blood Cells % 0 %; Platelet Count 172 10^3/cmm (157-399); Red Cell Distribution Width 12.5 % (12.1-15.1); White Blood Count 9.72 10^3/uL (3.29-11.43)
[2023-10-15 11:38] LABS: Alanine Aminotransferase 26 U/L (0-41); Albumin Level 4.2 g/dL (3.5-5.2); Alkaline Phosphatase 73 U/L (40-130); Anion Gap 17.9 (5-19); Aspartate Amino Transferase 20 U/L (0-40); Blood Urea Nitrogen 22 mg/dL (8-23); Calcium 9.1 mg/dL (8.5-10.5); Carbon Dioxide 24 mmol/L (22-29); Chloride 100 mmol/L (98-107); Globulin 3.3 g/dL (1.3-4.6); Glucose 162 mg/dL (65-115); Osmolality Calculated 293 mOsm/kg (285-295); Potassium 3.9 mmol/L (3.5-5.1); Prostate Specific Antigen 0.975 ng/mL (0-4); Sodium 138 mmol/L (136-145); Total Bilirubin 0.7 mg/dL (0.15-1.2); Total Protein 7.5 g/dL (6.6-8.7)
[2023-10-15] MEDS: denosumab 120 mg SDV SUBCUT (13:12)
[2023-10-15] MEDS: leuprolide 22.5 mg Kit IM (13:23)
[2023-10-15 13:30] VITALS: BP 114/74; PULSE 110; RESP 18; TEMP 36.6; O2SAT 98
== END 2023-11-09 23:59 | disposition home or self-care (01) ==
PROVIDERS: Internal Medicine Medical Oncology; PCP Nurse Practitioner; Visit Provider Internal Medicine Hematology & Oncology
DX: Z51.11 Encounter for antineoplastic chemotherapy (principal); C79.51 Secondary malignant neoplasm of bone; E11.9 Type 2 diabetes mellitus without complications; Z79.899 Other long term (current) drug therapy
CPT/HCPCS: 36415; 80053; 84153; 85025; 96372; 96402; 99214; J0897; J9217

== ENCOUNTER 2023-12-10 14:00 | Oncology outpatient (recurring) (ONCR) | payer OTHER, SELFPAY ==
[2023-11-12] MEDS: denosumab 120 mg SDV SUBCUT (14:58)
[2023-12-10] MEDS: denosumab 120 mg SDV SUBCUT (16:11)
[2023-12-10 16:14] VITALS: BP 113/78; PULSE 104; RESP 18; TEMP 36.6; O2SAT 93
== END 2023-12-10 23:59 | disposition home or self-care (01) ==
PROVIDERS: PCP Nurse Practitioner; Visit Provider Internal Medicine Hematology & Oncology
DX: Z51.11 Encounter for antineoplastic chemotherapy; C61 Malignant neoplasm of prostate; C79.51 Secondary malignant neoplasm of bone; Z53.9 Procedure and treatment not carried out, unspecified reason
CPT/HCPCS: 96372; J0897

== ENCOUNTER → 2023-12-30 09:25 | Outpatient (BNVA) | payer OTHER, SELFPAY | PROVIDERS: PCP Nurse Practitioner; Visit Provider Podiatrist Foot & Ankle Surgery | DX: E11.42 Type 2 diabetes mellitus with diabetic polyneuropathy (principal); Z89.412 Acquired absence of left great toe | CPT/HCPCS: 99213 ==

== ENCOUNTER 2024-01-07 11:41 | Oncology outpatient (recurring) (ONCR) | payer OTHER, SELFPAY ==
[2024-01-07 12:07] LABS: Basophils % 0.4 %; Eosinophils # 0.2 10^3/uL (0.0-0.8); Eosinophils % 2.3 %; Hematocrit 43.9 % (37-53); Lymphocytes # 1.6 10^3/uL (0.8-4.8); Lymphocytes % 15.6 %; Mean Corpuscular HGB Conc 33.5 g/dL (30-55); Mean Corpuscular Hemoglobin 30.5 pg (27-33); Mean Corpuscular Volume 91.1 fl (82-101); Mean Platelet Volume 9.7 fL (7.4-10.4); Monocytes # 0.6 10^3/uL (0.2-0.9); Monocytes % 5.4 %; Neutrophils # 7.84 10^3/uL (1.8-7.7); Neutrophils % 75.9 %; Nucleated Red Blood Cells % 0 %; Platelet Count 178 10^3/cmm (157-399); Red Blood Count 4.82 10^6/uL (3.85-5.65); Red Cell Distribution Width 13.1 % (12.1-15.1); White Blood Count 10.33 10^3/uL (3.29-11.43)
[2024-01-07 12:30] LABS: Alanine Aminotransferase 18 U/L (0-41); Albumin Level 3.9 g/dL (3.5-5.2); Alkaline Phosphatase 80 U/L (40-130); Anion Gap 17.2 (5-19); Aspartate Amino Transferase 15 U/L (0-40); Blood Urea Nitrogen 23 mg/dL (8-23); Calcium 9.2 mg/dL (8.5-10.5); Carbon Dioxide 25 mmol/L (22-29); Chloride 99 mmol/L (98-107); Globulin 3.4 g/dL (1.3-4.6); Glucose 174 mg/dL (65-115); Osmolality Calculated 292 mOsm/kg (285-295); Potassium 4.2 mmol/L (3.5-5.1); Sodium 137 mmol/L (136-145); Total Bilirubin 0.5 mg/dL (0.15-1.2); Total Protein 7.3 g/dL (6.6-8.7)
[2024-01-07 13:15] LABS: Prostate Specific Antigen 0.613 ng/mL (0-4)
--- NOTE | 2024-01-07 13:44 | ECG_ITS ---
[facility] Test Date: 2024-01-07 Pat Name: Cristobal Rincon Department: Room: Gender: Male Crew Dispatcher: : [id number] Requested By: Nikole Felton Order Number: [id number] Guevara MD: Jose Shah M.D. Measurements Intervals [place] Rate: 120 P: 30 ME: 151 QRS: 1 QRSD: 71 T: 51 QT: 307 QTc: 435 Interpretive Statements SINUS TACHYCARDIA MINIMAL ST DEPRESSION [0.025+ mV ST DEPRESSION] Compared to ECG 09/10/2022 12:54:18 ST (T wave) deviation now present T-wave abnormality no longer present Electronically Signed On 01-07-2024 15:27:29 SHEET ROCKER by Jose Shah M.D. [email or web address]
[2024-01-07] MEDS: leuprolide 22.5 mg Kit IM (13:57)
[2024-01-07] MEDS: denosumab 120 mg SDV SUBCUT (13:57)
[2024-01-07 13:58] VITALS: BP 121/77; PULSE 119; RESP 17; TEMP 36.6; O2SAT 97
[2024-01-07 14:41] LABS: Thyroid Stimulating Hormone 0.07 uIU/mL (0.27-4.20)
[2024-01-07 15:19] LABS: T3 Free 2.4 PG/ML (2.0-4.4)
== END 2024-01-08 23:59 | disposition home or self-care (01) ==
PROVIDERS: PCP Nurse Practitioner; Visit Provider Nurse Practitioner Family
DX: Z51.11 Encounter for antineoplastic chemotherapy (principal); C61 Malignant neoplasm of prostate; C79.51 Secondary malignant neoplasm of bone; C78.7 Secondary malignant neoplasm of liver and intrahepatic bile duct; C79.11 Secondary malignant neoplasm of bladder; C79.82 Secondary malignant neoplasm of genital organs; R00.0 Tachycardia, unspecified; E03.9 Hypothyroidism, unspecified; Z79.52 Long term (current) use of systemic steroids; Z79.899 Other long term (current) drug therapy; Z87.891 Personal history of nicotine dependence; E11.9 Type 2 diabetes mellitus without complications; Z79.84 Long term (current) use of oral hypoglycemic drugs
CPT/HCPCS: 36415; 80053; 84153; 84439; 84443; 84481; 85025; 93005; 96401; 96402; 99214; J0897; J9217

== ENCOUNTER 2024-02-05 14:05 | Oncology outpatient (recurring) (ONCR) | payer OTHER, SELFPAY ==
[2024-02-05] MEDS: denosumab 120 mg SDV SUBCUT (15:01)
== END 2024-02-08 23:59 | disposition home or self-care (01) ==
PROVIDERS: PCP Nurse Practitioner; Visit Provider Nurse Practitioner Family
DX: Z51.11 Encounter for antineoplastic chemotherapy (principal); C61 Malignant neoplasm of prostate; C79.51 Secondary malignant neoplasm of bone; Z53.9 Procedure and treatment not carried out, unspecified reason
CPT/HCPCS: 96372; J0897

== ENCOUNTER 2024-03-04 13:00 | Oncology outpatient (recurring) (ONCR) | payer OTHER, SELFPAY ==
[2024-03-04 13:28] VITALS: BP 149/99; PULSE 108; RESP 16; TEMP 36.4; O2SAT 94
== END 2024-03-09 23:59 | disposition home or self-care (01) ==
PROVIDERS: PCP Nurse Practitioner; Visit Provider Nurse Practitioner Family
DX: Z53.9 Procedure and treatment not carried out, unspecified reason

== ENCOUNTER → 2024-03-30 09:02 | Outpatient (BNVA) | payer OTHER, SELFPAY | PROVIDERS: PCP Nurse Practitioner; Visit Provider Podiatrist Foot & Ankle Surgery | DX: E11.42 Type 2 diabetes mellitus with diabetic polyneuropathy (principal); Z89.412 Acquired absence of left great toe | CPT/HCPCS: 99213 ==

== ENCOUNTER 2024-04-01 11:40 | Oncology outpatient (recurring) (ONCR) | payer OTHER, SELFPAY ==
[2024-04-01 12:06] LABS: Basophils % 0.4 %; Eosinophils # 0.1 10^3/uL (0.0-0.8); Eosinophils % 1.2 %; Hematocrit 42.3 % (37-53); Lymphocytes # 1.9 10^3/uL (0.8-4.8); Lymphocytes % 18.4 %; Mean Corpuscular HGB Conc 34.3 g/dL (30-55); Mean Corpuscular Hemoglobin 32.2 pg (27-33); Mean Corpuscular Volume 93.8 fl (82-101); Mean Platelet Volume 9.9 fL (7.4-10.4); Monocytes # 0.4 10^3/uL (0.2-0.9); Neutrophils # 7.58 10^3/uL (1.8-7.7); Neutrophils % 75.6 %; Nucleated Red Blood Cells % 0 %; Platelet Count 177 10^3/cmm (157-399); Red Blood Count 4.51 10^6/uL (3.85-5.65); White Blood Count 10.03 10^3/uL (3.29-11.43)
[2024-04-01 12:46] LABS: Alanine Aminotransferase 19 U/L (0-41); Alkaline Phosphatase 85 U/L (40-130); Blood Urea Nitrogen 22 mg/dL (8-23); Calcium 8.6 mg/dL (8.5-10.5); Carbon Dioxide 25 mmol/L (22-29); Chloride 99 mmol/L (98-107); Globulin 3.5 g/dL (1.3-4.6); Glucose 239 mg/dL (65-115); Osmolality Calculated 293 mOsm/kg (285-295); Prostate Specific Antigen 0.335 ng/mL (0-4); Sodium 136 mmol/L (136-145); Total Bilirubin 0.4 mg/dL (0.15-1.2); Total Protein 7.5 g/dL (6.6-8.7)
[2024-04-01 12:51] LABS: Anion Gap 16.3 (5-19); Aspartate Amino Transferase 19 U/L (0-40); Potassium 4.3 mmol/L (3.5-5.1)
[2024-04-01] MEDS: leuprolide 22.5 mg Kit IM (14:57)
[2024-04-01] MEDS: denosumab 120 mg SDV SUBCUT (14:58)
[2024-04-01 15:24] LABS: Magnesium 2.1 mg/dL (1.7-2.3)
== END 2024-04-09 23:59 | disposition home or self-care (01) ==
PROVIDERS: Nurse Practitioner Family; PCP Nurse Practitioner; Visit Provider Nurse Practitioner Family
DX: Z51.11 Encounter for antineoplastic chemotherapy (principal); C61 Malignant neoplasm of prostate; C79.51 Secondary malignant neoplasm of bone; Z87.891 Personal history of nicotine dependence; Z79.818 Long term (current) use of other agents affecting estrogen receptors and estrogen levels; R00.0 Tachycardia, unspecified; E03.9 Hypothyroidism, unspecified; E11.9 Type 2 diabetes mellitus without complications; Z79.84 Long term (current) use of oral hypoglycemic drugs; Z79.899 Other long term (current) drug therapy
CPT/HCPCS: 36415; 80053; 83735; 84153; 85025; 96372; 96402; 99214; J0897; J9217

== ENCOUNTER 2024-04-29 14:12 | Oncology outpatient (recurring) (ONCR) | payer OTHER, SELFPAY ==
[2024-04-29] MEDS: denosumab 120 mg SDV SUBCUT (15:09)
== END 2024-05-09 23:59 | disposition home or self-care (01) ==
LOC: ONCMED 14:12
PROVIDERS: PCP Nurse Practitioner; Visit Provider Nurse Practitioner Family
DX: Z51.11 Encounter for antineoplastic chemotherapy (principal); C61 Malignant neoplasm of prostate; C79.51 Secondary malignant neoplasm of bone
CPT/HCPCS: 96372; J0897

== ENCOUNTER 2024-05-27 14:19 | Oncology outpatient (recurring) (ONCR) | payer OTHER, SELFPAY ==
[2024-05-27 15:07] LABS: Basophils # 0.1 10^3/uL (0.0-0.1); Basophils % 0.5 %; Eosinophils # 0.4 10^3/uL (0.0-0.8); Eosinophils % 3.5 %; Hematocrit 42.1 % (37-53); Lymphocytes # 2.9 10^3/uL (0.8-4.8); Lymphocytes % 27.2 %; Mean Corpuscular Hemoglobin 31.3 pg (27-33); Mean Corpuscular Volume 92.1 fl (82-101); Mean Platelet Volume 10.4 fL (7.4-10.4); Monocytes # 0.6 10^3/uL (0.2-0.9); Monocytes % 5.3 %; Neutrophils # 6.62 10^3/uL (1.8-7.7); Neutrophils % 63.2 %; Nucleated Red Blood Cells % 0 %; Platelet Count 178 10^3/cmm (157-399); Red Blood Count 4.57 10^6/uL (3.85-5.65); White Blood Count 10.48 10^3/uL (3.29-11.43)
[2024-05-27 15:22] LABS: Alanine Aminotransferase 18 U/L (0-41); Albumin Level 3.9 g/dL (3.5-5.2); Alkaline Phosphatase 70 U/L (40-130); Anion Gap 15.9 (5-19); Aspartate Amino Transferase 15 U/L (0-40); Blood Urea Nitrogen 23 mg/dL (8-23); Calcium 8.9 mg/dL (8.5-10.5); Carbon Dioxide 25 mmol/L (22-29); Chloride 98 mmol/L (98-107); Globulin 3.3 g/dL (1.3-4.6); Glucose 297 mg/dL (65-115); Osmolality Calculated 295 mOsm/kg (285-295); Potassium 3.9 mmol/L (3.5-5.1); Sodium 135 mmol/L (136-145); Total Bilirubin 0.5 mg/dL (0.15-1.2); Total Protein 7.2 g/dL (6.6-8.7)
[2024-05-27] MEDS: denosumab 120 mg SDV SUBCUT (15:37)
[2024-05-27 15:40] VITALS: BP 106/61; PULSE 75; RESP 16; TEMP 36.5; O2SAT 96
== END 2024-06-09 23:59 | disposition home or self-care (01) ==
LOC: ONCMED 14:20
PROVIDERS: Nurse Practitioner Family; PCP Nurse Practitioner; Visit Provider Nurse Practitioner Family
DX: C61 Malignant neoplasm of prostate; C79.51 Secondary malignant neoplasm of bone; Z79.899 Other long term (current) drug therapy
CPT/HCPCS: 36415; 80053; 85025; 96401; J0897

== ENCOUNTER → 2024-06-02 07:39 | Outpatient (BNVA) | payer OTHER, SELFPAY | PROVIDERS: PCP Nurse Practitioner; Visit Provider Thoracic Surgery (Cardiothoracic Vascular Surgery) | DX: E11.52 Type 2 diabetes mellitus with diabetic peripheral angiopathy with gangrene (principal); E11.621 Type 2 diabetes mellitus with foot ulcer; L97.421 Non-pressure chronic ulcer of left heel and midfoot limited to breakdown of skin; S51.811A Laceration without foreign body of right forearm, initial encounter; X58.XXXA Exposure to other specified factors, initial encounter | CPT/HCPCS: 97597; 99213 ==

== ENCOUNTER → 2024-06-07 10:58 | Outpatient (BNVA) | payer OTHER, SELFPAY | PROVIDERS: PCP Nurse Practitioner; Visit Provider Thoracic Surgery (Cardiothoracic Vascular Surgery) | DX: E11.52 Type 2 diabetes mellitus with diabetic peripheral angiopathy with gangrene (principal); E11.621 Type 2 diabetes mellitus with foot ulcer; L97.421 Non-pressure chronic ulcer of left heel and midfoot limited to breakdown of skin; S51.811D Laceration without foreign body of right forearm, subsequent encounter; X58.XXXD Exposure to other specified factors, subsequent encounter | CPT/HCPCS: 97597 ==

== ENCOUNTER → 2024-06-14 11:00 | Outpatient (BNVA) | payer OTHER, SELFPAY | PROVIDERS: PCP Nurse Practitioner; Visit Provider Thoracic Surgery (Cardiothoracic Vascular Surgery) | DX: E11.52 Type 2 diabetes mellitus with diabetic peripheral angiopathy with gangrene (principal); E11.621 Type 2 diabetes mellitus with foot ulcer; L97.421 Non-pressure chronic ulcer of left heel and midfoot limited to breakdown of skin; S51.811D Laceration without foreign body of right forearm, subsequent encounter; X58.XXXD Exposure to other specified factors, subsequent encounter | CPT/HCPCS: 97597 ==

== ENCOUNTER → 2024-06-21 10:40 | Outpatient (BNVA) | payer OTHER, SELFPAY | PROVIDERS: PCP Nurse Practitioner; Visit Provider Thoracic Surgery (Cardiothoracic Vascular Surgery) | DX: Z09 Encounter for follow-up examination after completed treatment for conditions other than malignant neoplasm (principal); Z87.2 Personal history of diseases of the skin and subcutaneous tissue | CPT/HCPCS: 99212 ==

== ENCOUNTER 2024-06-28 09:43 | Oncology outpatient (recurring) (ONCR) | payer OTHER, SELFPAY ==
[2024-06-28 10:06] LABS: Basophils % 0.3 %; Eosinophils # 0.3 10^3/uL (0.0-0.8); Eosinophils % 2.9 %; Hematocrit 43.9 % (37-53); Lymphocytes # 2.3 10^3/uL (0.8-4.8); Lymphocytes % 21.5 %; Mean Corpuscular HGB Conc 33.3 g/dL (30-55); Mean Corpuscular Hemoglobin 30.6 pg (27-33); Mean Platelet Volume 9.6 fL (7.4-10.4); Monocytes # 0.6 10^3/uL (0.2-0.9); Monocytes % 5.5 %; Neutrophils # 7.47 10^3/uL (1.8-7.7); Neutrophils % 69.4 %; Nucleated Red Blood Cells % 0 %; Platelet Count 180 10^3/cmm (157-399); Red Blood Count 4.77 10^6/uL (3.85-5.65); Red Cell Distribution Width 12.9 % (12.1-15.1); White Blood Count 10.75 10^3/uL (3.29-11.43)
[2024-06-28 10:33] LABS: Alanine Aminotransferase 19 U/L (0-41); Albumin Level 4.1 g/dL (3.5-5.2); Alkaline Phosphatase 65 U/L (40-130); Anion Gap 14.9 (5-19); Aspartate Amino Transferase 17 U/L (0-40); Blood Urea Nitrogen 19 mg/dL (8-23); Calcium 9.3 mg/dL (8.5-10.5); Carbon Dioxide 27 mmol/L (22-29); Chloride 101 mmol/L (98-107); Globulin 2.9 g/dL (1.3-4.6); Glucose 166 mg/dL (65-115); Osmolality Calculated 294 mOsm/kg (285-295); Potassium 3.9 mmol/L (3.5-5.1); Prostate Specific Antigen 0.185 ng/mL (0-4); Sodium 139 mmol/L (136-145); Total Bilirubin 0.5 mg/dL (0.15-1.2)
[2024-06-28] MEDS: denosumab 120 mg SDV SUBCUT (12:06)
[2024-06-28] MEDS: leuprolide 22.5 mg Kit IM (12:23)
== END 2024-07-10 23:59 | disposition home or self-care (01) ==
PROVIDERS: PCP Nurse Practitioner; Visit Provider Nurse Practitioner Family
DX: C61 Malignant neoplasm of prostate (principal); C79.51 Secondary malignant neoplasm of bone; Z79.899 Other long term (current) drug therapy; Z51.11 Encounter for antineoplastic chemotherapy; R00.0 Tachycardia, unspecified
CPT/HCPCS: 36415; 80053; 84153; 85025; 96372; 96402; 99214; J0897; J9217

== ENCOUNTER 2024-07-26 14:28 | Oncology outpatient (recurring) (ONCR) | payer OTHER, SELFPAY ==
[2024-07-26] MEDS: denosumab 120 mg SDV SUBCUT (14:55)
[2024-07-26 14:57] VITALS: BP 124/74; PULSE 104; RESP 16; TEMP 36.6; O2SAT 95
== END 2024-08-09 23:59 | disposition home or self-care (01) ==
LOC: ONCMED 14:28
PROVIDERS: PCP Nurse Practitioner; Visit Provider Nurse Practitioner Family
DX: C61 Malignant neoplasm of prostate; C79.51 Secondary malignant neoplasm of bone; Z79.899 Other long term (current) drug therapy; E11.42 Type 2 diabetes mellitus with diabetic polyneuropathy; Z89.412 Acquired absence of left great toe
CPT/HCPCS: 96372; 99213; J0897

== ENCOUNTER 2024-08-23 13:12 | Oncology outpatient (recurring) (ONCR) | payer OTHER, SELFPAY ==
[2024-08-23] MEDS: denosumab 120 mg SDV SUBCUT (13:37)
== END 2024-09-09 23:59 | disposition home or self-care (01) ==
PROVIDERS: PCP Nurse Practitioner; Visit Provider Nurse Practitioner Family
DX: C61 Malignant neoplasm of prostate (principal); Z79.899 Other long term (current) drug therapy
CPT/HCPCS: 96372; J0897

== ENCOUNTER 2024-09-20 12:11 | Oncology outpatient (recurring) (ONCR) | payer OTHER, SELFPAY ==
[2024-09-20 12:21] LABS: Basophils % 0.4 %; Eosinophils # 0.2 10^3/uL (0.0-0.8); Eosinophils % 2.1 %; Lymphocytes # 1.7 10^3/uL (0.8-4.8); Lymphocytes % 15.6 %; Mean Corpuscular HGB Conc 33.1 g/dL (30-55); Mean Corpuscular Hemoglobin 30.2 pg (27-33); Mean Corpuscular Volume 91.3 fl (82-101); Mean Platelet Volume 9.8 fL (7.4-10.4); Monocytes # 0.6 10^3/uL (0.2-0.9); Monocytes % 5.1 %; Neutrophils # 8.43 10^3/uL (1.8-7.7); Neutrophils % 76.3 %; Nucleated Red Blood Cells % 0 %; Platelet Count 191 10^3/cmm (157-399); Red Blood Count 4.93 10^6/uL (3.85-5.65); Red Cell Distribution Width 12.8 % (12.1-15.1); White Blood Count 11.03 10^3/uL (3.29-11.43)
[2024-09-20 12:48] LABS: Alanine Aminotransferase 13 U/L (0-41); Alkaline Phosphatase 67 U/L (40-130); Anion Gap 15.4 (5-19); Aspartate Amino Transferase 14 U/L (0-40); Blood Urea Nitrogen 20 mg/dL (8-23); Calcium 8.6 mg/dL (8.5-10.5); Carbon Dioxide 26 mmol/L (22-29); Chloride 102 mmol/L (98-107); Creatinine Clr Calc Pharmacy 91.0156; Glucose 257 mg/dL (65-115); Osmolality Calculated 299 mOsm/kg (285-295); Potassium 4.4 mmol/L (3.5-5.1); Prostate Specific Antigen 0.136 ng/mL (0-4); Sodium 139 mmol/L (136-145); Total Bilirubin 0.4 mg/dL (0.15-1.2)
[2024-09-20] MEDS: denosumab 120 mg SDV SUBCUT (14:09)
[2024-09-20] MEDS: leuprolide 22.5 mg Kit IM (14:17)
== END 2024-10-09 23:59 | disposition home or self-care (01) ==
PROVIDERS: PCP Nurse Practitioner; Visit Provider Nurse Practitioner Family
DX: C61 Malignant neoplasm of prostate (principal); Z79.899 Other long term (current) drug therapy; C79.51 Secondary malignant neoplasm of bone; Z53.9 Procedure and treatment not carried out, unspecified reason; R00.0 Tachycardia, unspecified; Z51.11 Encounter for antineoplastic chemotherapy
CPT/HCPCS: 36415; 80053; 84153; 85025; 96372; 96402; 99214; J0897; J9217

== ENCOUNTER 2024-10-18 14:04 | Oncology outpatient (recurring) (ONCR) | payer OTHER, SELFPAY ==
[2024-10-18] MEDS: denosumab 120 mg SDV SUBCUT (14:41)
== END 2024-11-09 23:59 | disposition home or self-care (01) ==
LOC: ONCMED 14:05
PROVIDERS: PCP Nurse Practitioner; Visit Provider Nurse Practitioner Family
DX: C61 Malignant neoplasm of prostate; C79.51 Secondary malignant neoplasm of bone; Z79.899 Other long term (current) drug therapy
CPT/HCPCS: 96372; J0897

== ENCOUNTER 2024-11-15 13:28 | Oncology outpatient (recurring) (ONCR) | payer OTHER, SELFPAY ==
[2024-11-15] MEDS: denosumab 120 mg SDV SUBCUT (13:46)
== END 2024-12-10 23:59 | disposition home or self-care (01) ==
LOC: ONCMED 13:29
PROVIDERS: PCP Nurse Practitioner; Visit Provider Nurse Practitioner Family
DX: C61 Malignant neoplasm of prostate (principal); C79.51 Secondary malignant neoplasm of bone; Z79.899 Other long term (current) drug therapy
CPT/HCPCS: 96372; J0897

== ENCOUNTER → 2024-11-23 10:58 | Outpatient (BNVA) | payer OTHER, SELFPAY | PROVIDERS: PCP Nurse Practitioner; Visit Provider Podiatrist Foot & Ankle Surgery | DX: E11.8 Type 2 diabetes mellitus with unspecified complications (principal); E11.42 Type 2 diabetes mellitus with diabetic polyneuropathy; S98.112A Complete traumatic amputation of left great toe, initial encounter; R03.0 Elevated blood-pressure reading, without diagnosis of hypertension; Z89.412 Acquired absence of left great toe | CPT/HCPCS: 99213 ==

== ENCOUNTER 2024-12-13 11:25 | Oncology outpatient (recurring) (ONCR) | payer OTHER, SELFPAY ==
[2024-12-13 11:42] LABS: Basophils # 0.1 10^3/uL (0.0-0.1); Basophils % 0.4 %; Eosinophils # 0.3 10^3/uL (0.0-0.8); Eosinophils % 2.6 %; Hematocrit 43.5 % (37-53); Lymphocytes # 2.4 10^3/uL (0.8-4.8); Lymphocytes % 20.8 %; Mean Corpuscular HGB Conc 33.6 g/dL (30-55); Mean Corpuscular Hemoglobin 30.3 pg (27-33); Mean Corpuscular Volume 90.2 fl (82-101); Mean Platelet Volume 9.6 fL (7.4-10.4); Monocytes # 0.6 10^3/uL (0.2-0.9); Monocytes % 5.3 %; Neutrophils # 8.04 10^3/uL (1.8-7.7); Neutrophils % 70.5 %; Nucleated Red Blood Cells % 0 %; Platelet Count 201 10^3/cmm (157-399); Red Blood Count 4.82 10^6/uL (3.85-5.65); Red Cell Distribution Width 12.7 % (12.1-15.1); White Blood Count 11.43 10^3/uL (3.29-11.43)
[2024-12-13 12:09] LABS: Alanine Aminotransferase 15 U/L (0-41); Albumin Level 4.1 g/dL (3.5-5.2); Alkaline Phosphatase 72 U/L (40-130); Anion Gap 17.1 (5-19); Aspartate Amino Transferase 15 U/L (0-40); Blood Urea Nitrogen 20 mg/dL (8-23); Calcium 9.4 mg/dL (8.5-10.5); Carbon Dioxide 26 mmol/L (22-29); Chloride 100 mmol/L (98-107); Creatinine Clr Calc Pharmacy 81.3958; Globulin 2.8 g/dL (1.3-4.6); Glucose 182 mg/dL (65-115); Osmolality Calculated 295 mOsm/kg (285-295); Potassium 4.1 mmol/L (3.5-5.1); Sodium 139 mmol/L (136-145); Total Bilirubin 0.5 mg/dL (0.15-1.2); Total Protein 6.9 g/dL (6.6-8.7)
[2024-12-13 12:14] LABS: Testosterone Total < 2.5 ng/dL (193-740)
[2024-12-13] MEDS: leuprolide 22.5 mg Kit IM (13:09)
[2024-12-13] MEDS: denosumab 120 mg SDV SUBCUT (13:14)
== END 2025-01-07 23:59 | disposition home or self-care (01) ==
PROVIDERS: PCP Nurse Practitioner; Visit Provider Nurse Practitioner Family
DX: Z51.11 Encounter for antineoplastic chemotherapy (principal); C61 Malignant neoplasm of prostate; Z79.899 Other long term (current) drug therapy; Z79.818 Long term (current) use of other agents affecting estrogen receptors and estrogen levels; Z87.891 Personal history of nicotine dependence
CPT/HCPCS: 36415; 80053; 84153; 84403; 85025; 96401; 96402; 99214; J0897; J9217

== ENCOUNTER → 2024-12-20 08:24 | Outpatient (BNVA) | payer OTHER, SELFPAY | PROVIDERS: PCP Nurse Practitioner; Visit Provider Podiatrist Foot & Ankle Surgery | DX: E11.42 Type 2 diabetes mellitus with diabetic polyneuropathy (principal); L84 Corns and callosities; E11.8 Type 2 diabetes mellitus with unspecified complications; R03.0 Elevated blood-pressure reading, without diagnosis of hypertension; Z89.412 Acquired absence of left great toe | CPT/HCPCS: 99213 ==

== ENCOUNTER 2025-01-11 11:02 | Oncology outpatient (recurring) (ONCR) | payer OTHER, SELFPAY ==
[2025-01-11 11:16] LABS: Basophils % 0.3 %; Eosinophils # 0.4 10^3/uL (0.0-0.8); Eosinophils % 3.3 %; Hematocrit 43.4 % (37-53); Lymphocytes % 26.6 %; Mean Corpuscular HGB Conc 33.4 g/dL (30-55); Mean Corpuscular Hemoglobin 30.6 pg (27-33); Mean Corpuscular Volume 91.6 fl (82-101); Mean Platelet Volume 9.5 fL (7.4-10.4); Monocytes # 0.7 10^3/uL (0.2-0.9); Monocytes % 6.4 %; Neutrophils # 7.04 10^3/uL (1.8-7.7); Nucleated Red Blood Cells % 0 %; Platelet Count 195 10^3/cmm (157-399); Red Blood Count 4.74 10^6/uL (3.85-5.65); Red Cell Distribution Width 12.6 % (12.1-15.1); White Blood Count 11.17 10^3/uL (3.29-11.43)
[2025-01-11 11:45] LABS: Alanine Aminotransferase 17 U/L (0-41); Albumin Level 4.1 g/dL (3.5-5.2); Alkaline Phosphatase 67 U/L (40-130); Anion Gap 14.1 (5-19); Aspartate Amino Transferase 16 U/L (0-40); Blood Urea Nitrogen 22 mg/dL (8-23); Calcium 9.1 mg/dL (8.5-10.5); Carbon Dioxide 26 mmol/L (22-29); Chloride 103 mmol/L (98-107); Globulin 2.9 g/dL (1.3-4.6); Glucose 153 mg/dL (65-115); Osmolality Calculated 294 mOsm/kg (285-295); Potassium 4.1 mmol/L (3.5-5.1); Prostate Specific Antigen 0.117 ng/mL (0-4); Sodium 139 mmol/L (136-145); Total Bilirubin 0.5 mg/dL (0.15-1.2)
[2025-01-11] MEDS: denosumab 120 mg SDV SUBCUT (13:24)
== END 2025-02-07 23:59 | disposition home or self-care (01) ==
PROVIDERS: PCP Nurse Practitioner; Visit Provider Internal Medicine Medical Oncology
DX: C61 Malignant neoplasm of prostate (principal); Z79.899 Other long term (current) drug therapy; Z79.818 Long term (current) use of other agents affecting estrogen receptors and estrogen levels; Z87.891 Personal history of nicotine dependence; Z79.52 Long term (current) use of systemic steroids
CPT/HCPCS: 80053; 84153; 85025; 96372; 99213; J0897

== ENCOUNTER 2025-03-08 12:00 | Oncology outpatient (recurring) (ONCR) | payer OTHER, SELFPAY ==
[2025-02-08 12:01] LABS: Basophils % 0.3 %; Eosinophils # 0.3 10^3/uL (0.0-0.8); Eosinophils % 2.7 %; Lymphocytes # 2.2 10^3/uL (0.8-4.8); Lymphocytes % 18.6 %; Mean Corpuscular HGB Conc 33.6 g/dL (30-55); Mean Corpuscular Hemoglobin 30.7 pg (27-33); Mean Corpuscular Volume 91.3 fl (82-101); Mean Platelet Volume 9.6 fL (7.4-10.4); Monocytes # 0.7 10^3/uL (0.2-0.9); Monocytes % 5.5 %; Neutrophils # 8.64 10^3/uL (1.8-7.7); Neutrophils % 72.5 %; Nucleated Red Blood Cells % 0 %; Platelet Count 198 10^3/cmm (157-399); Red Blood Count 4.82 10^6/uL (3.85-5.65); Red Cell Distribution Width 12.6 % (12.1-15.1); White Blood Count 11.92 10^3/uL (3.29-11.43)
[2025-02-08 12:34] LABS: Alanine Aminotransferase 15 U/L (0-41); Albumin Level 4.1 g/dL (3.5-5.2); Alkaline Phosphatase 67 U/L (40-130); Anion Gap 15.4 (5-19); Aspartate Amino Transferase 17 U/L (0-40); Blood Urea Nitrogen 24 mg/dL (8-23); Calcium 9.3 mg/dL (8.5-10.5); Carbon Dioxide 26 mmol/L (22-29); Chloride 100 mmol/L (98-107); Creatinine Clr Calc Pharmacy 66.6421; Globulin 3.1 g/dL (1.3-4.6); Glucose 177 mg/dL (65-115); Osmolality Calculated 292 mOsm/kg (285-295); Potassium 4.4 mmol/L (3.5-5.1); Prostate Specific Antigen 0.096 ng/mL (0-4); Sodium 137 mmol/L (136-145); Testosterone Total < 2.5 ng/dL (193-740); Total Bilirubin 0.4 mg/dL (0.15-1.2); Total Protein 7.2 g/dL (6.6-8.7)
[2025-02-08] MEDS: denosumab 120 mg SDV SUBCUT (14:17)
[2025-03-08 11:39] LABS: Basophils # 0.1 10^3/uL (0.0-0.1); Basophils % 0.6 %; Eosinophils # 0.2 10^3/uL (0.0-0.8); Eosinophils % 1.9 %; Hematocrit 43.3 % (37-53); Lymphocytes # 1.5 10^3/uL (0.8-4.8); Lymphocytes % 13.6 %; Mean Corpuscular HGB Conc 33.5 g/dL (30-55); Mean Corpuscular Hemoglobin 30.4 pg (27-33); Mean Corpuscular Volume 90.8 fl (82-101); Mean Platelet Volume 9.7 fL (7.4-10.4); Monocytes # 0.7 10^3/uL (0.2-0.9); Monocytes % 6.1 %; Neutrophils % 77.4 %; Nucleated Red Blood Cells % 0 %; Platelet Count 198 10^3/cmm (157-399); Red Blood Count 4.77 10^6/uL (3.85-5.65); Red Cell Distribution Width 12.6 % (12.1-15.1); White Blood Count 11.35 10^3/uL (3.29-11.43)
[2025-03-08 12:08] LABS: Alanine Aminotransferase 11 U/L (0-41); Albumin Level 3.7 g/dL (3.5-5.2); Alkaline Phosphatase 89 U/L (40-130); Anion Gap 15.1 (5-19); Aspartate Amino Transferase 12 U/L (0-40); Blood Urea Nitrogen 16 mg/dL (8-23); Calcium 8.6 mg/dL (8.5-10.5); Carbon Dioxide 26 mmol/L (22-29); Chloride 98 mmol/L (98-107); Creatinine Clr Calc Pharmacy 81.2164; Globulin 3.6 g/dL (1.3-4.6); Glucose 241 mg/dL (65-115); Osmolality Calculated 289 mOsm/kg (285-295); Potassium 4.1 mmol/L (3.5-5.1); Prostate Specific Antigen 0.084 ng/mL (0-4); Sodium 135 mmol/L (136-145); Total Bilirubin 0.7 mg/dL (0.15-1.2); Total Protein 7.3 g/dL (6.6-8.7)
[2025-03-08 12:14] LABS: Testosterone Total < 2.5 ng/dL (193-740)
[2025-03-08] MEDS: denosumab 120 mg SDV SUBCUT (13:16)
[2025-03-08] MEDS: leuprolide 22.5 mg Kit IM (13:18)
== END 2025-03-09 23:59 | disposition home or self-care (01) ==
PROVIDERS: Nurse Practitioner Family; PCP Nurse Practitioner; Visit Provider Internal Medicine Medical Oncology
DX: Z53.9 Procedure and treatment not carried out, unspecified reason; Z51.11 Encounter for antineoplastic chemotherapy; C61 Malignant neoplasm of prostate; C79.51 Secondary malignant neoplasm of bone; Z79.818 Long term (current) use of other agents affecting estrogen receptors and estrogen levels; Z79.52 Long term (current) use of systemic steroids
CPT/HCPCS: 36415; 80048; 80053; 84153; 84403; 85025; 96372; 96402; 99213; 99214; J0897; J9217

== ENCOUNTER → 2025-03-22 09:53 | Outpatient (BNVA) | payer OTHER, SELFPAY | PROVIDERS: PCP Nurse Practitioner; Visit Provider Podiatrist Foot & Ankle Surgery | DX: E11.42 Type 2 diabetes mellitus with diabetic polyneuropathy (principal); L60.3 Nail dystrophy; Z89.412 Acquired absence of left great toe | CPT/HCPCS: 11721 ==

== ENCOUNTER 2025-06-07 11:28 | Oncology outpatient (recurring) (ONCR) | payer OTHER, SELFPAY ==
[2025-06-07 11:43] LABS: Hematocrit 42.9 % (37-53); Hemoglobin 14.40 g/dL (11.27-16.99); Mean Corpuscular HGB Conc 33.6 g/dL (30-55); Mean Corpuscular Hemoglobin 30.1 pg (27-33); Mean Corpuscular Volume 89.6 fl (82-101); Nucleated Red Blood Cells % 0 %; Platelet Count 196 10^3/cmm (157-399); Red Blood Count 4.79 10^6/uL (3.85-5.65); White Blood Count 13.00 10^3/uL (3.29-11.43)
[2025-06-07 12:11] LABS: Alanine Aminotransferase 14 U/L (0-41); Albumin Level 4.0 g/dL (3.5-5.2); Alkaline Phosphatase 80 U/L (40-130); Anion Gap 20.0 (5-19); Aspartate Amino Transferase 17 U/L (0-40); Blood Urea Nitrogen 22 mg/dL (8-23); Calcium 9.2 mg/dL (8.5-10.5); Carbon Dioxide 22 mmol/L (22-29); Chloride 99 mmol/L (98-107); Globulin 3.3 g/dL (1.3-4.6); Glucose 254 mg/dL (65-115); Osmolality Calculated 296 mOsm/kg (285-295); Potassium 4.0 mmol/L (3.5-5.1); Prostate Specific Antigen 0.081 ng/mL (0-4); Sodium 137 mmol/L (136-145); Total Protein 7.3 g/dL (6.6-8.7)
[2025-06-07] MEDS: denosumab 120 mg SDV SUBCUT (13:14)
[2025-06-07] MEDS: leuprolide 22.5 mg Kit IM (13:27)
== END 2025-06-09 23:59 | disposition home or self-care (01) ==
PROVIDERS: PCP Nurse Practitioner; Visit Provider Internal Medicine Medical Oncology
DX: Z51.11 Encounter for antineoplastic chemotherapy (principal); C61 Malignant neoplasm of prostate; C79.51 Secondary malignant neoplasm of bone; Z79.899 Other long term (current) drug therapy; Z87.891 Personal history of nicotine dependence; Z79.818 Long term (current) use of other agents affecting estrogen receptors and estrogen levels
CPT/HCPCS: 36415; 80053; 84153; 84403; 85025; 96401; 96402; 99213; J0897; J9217

== ENCOUNTER → 2025-07-12 10:25 | Outpatient (BNVA) | payer OTHER, SELFPAY | PROVIDERS: PCP Nurse Practitioner; Visit Provider Podiatrist Foot & Ankle Surgery | DX: E11.42 Type 2 diabetes mellitus with diabetic polyneuropathy (principal); L60.3 Nail dystrophy; Z89.412 Acquired absence of left great toe; E11.8 Type 2 diabetes mellitus with unspecified complications | CPT/HCPCS: 11721 ==

== ENCOUNTER 2025-08-23 10:57 | Oncology outpatient (recurring) (ONCR) | payer OTHER, SELFPAY ==
[2025-08-23 11:20] LABS: Hematocrit 41.7 % (37-53); Hemoglobin 14.20 g/dL (11.27-16.99); Mean Corpuscular HGB Conc 34.1 g/dL (30-55); Mean Corpuscular Hemoglobin 30.5 pg (27-33); Mean Corpuscular Volume 89.5 fl (82-101); Nucleated Red Blood Cells % 0 %; Platelet Count 180 10^3/cmm (157-399); Red Blood Count 4.66 10^6/uL (3.85-5.65); White Blood Count 12.08 10^3/uL (3.29-11.43)
[2025-08-23 11:50] LABS: Alanine Aminotransferase 15 U/L (0-41); Albumin Level 4.1 g/dL (3.5-5.2); Alkaline Phosphatase 67 U/L (40-130); Anion Gap 16.2 (5-19); Aspartate Amino Transferase 17 U/L (0-40); Blood Urea Nitrogen 20 mg/dL (8-23); Calcium 9.1 mg/dL (8.5-10.5); Carbon Dioxide 26 mmol/L (22-29); Chloride 99 mmol/L (98-107); Globulin 3.0 g/dL (1.3-4.6); Glucose 157 mg/dL (65-115); Osmolality Calculated 290 mOsm/kg (285-295); Potassium 4.2 mmol/L (3.5-5.1); Prostate Specific Antigen 0.066 ng/mL (0-4); Sodium 137 mmol/L (136-145); Total Protein 7.1 g/dL (6.6-8.7)
[2025-08-23] MEDS: leuprolide 22.5 mg Kit IM (13:43)
[2025-08-23] MEDS: denosumab 120 mg SDV (Infusion Clinic Only) SUBCUT (13:43)
== END 2025-09-09 23:59 | disposition home or self-care (01) ==
PROVIDERS: PCP Nurse Practitioner; Visit Provider Internal Medicine Medical Oncology
DX: Z51.11 Encounter for antineoplastic chemotherapy (principal); C61 Malignant neoplasm of prostate; C79.51 Secondary malignant neoplasm of bone; J84.9 Interstitial pulmonary disease, unspecified; R06.02 Shortness of breath; Z79.899 Other long term (current) drug therapy; Z87.891 Personal history of nicotine dependence; Z79.818 Long term (current) use of other agents affecting estrogen receptors and estrogen levels; Z79.52 Long term (current) use of systemic steroids
CPT/HCPCS: 36415; 80053; 84153; 84403; 85025; 96372; 96402; 99214; J0897; J9217

== ENCOUNTER 2025-09-20 10:46 | Oncology outpatient (recurring) (ONCR) | payer OTHER, SELFPAY ==
[2025-09-20 11:29] LABS: Hematocrit 42.7 % (37-53); Hemoglobin 14.10 g/dL (11.27-16.99); Mean Corpuscular HGB Conc 33.0 g/dL (30-55); Mean Corpuscular Hemoglobin 30.3 pg (27-33); Mean Corpuscular Volume 91.6 fl (82-101); Nucleated Red Blood Cells % 0 %; Platelet Count 168 10^3/cmm (157-399); Red Blood Count 4.66 10^6/uL (3.85-5.65); White Blood Count 12.81 10^3/uL (3.29-11.43)
[2025-09-20 11:47] LABS: Alanine Aminotransferase 16 U/L (0-41); Albumin Level 4.0 g/dL (3.5-5.2); Alkaline Phosphatase 81 U/L (40-130); Anion Gap 16.2 (5-19); Aspartate Amino Transferase 17 U/L (0-40); Blood Urea Nitrogen 18 mg/dL (8-23); Calcium 9.0 mg/dL (8.5-10.5); Carbon Dioxide 24 mmol/L (22-29); Chloride 101 mmol/L (98-107); Globulin 3.2 g/dL (1.3-4.6); Glucose 156 mg/dL (65-115); Osmolality Calculated 289 mOsm/kg (285-295); Potassium 4.2 mmol/L (3.5-5.1); Sodium 137 mmol/L (136-145); Total Protein 7.2 g/dL (6.6-8.7)
[2025-09-20] MEDS: denosumab-bbdz 120 mg SDV (Inpatient and Infusion Clinic Use) SUBCUT (12:38)
== END 2025-10-09 23:59 | disposition home or self-care (01) ==
PROVIDERS: PCP Nurse Practitioner; Visit Provider Internal Medicine Medical Oncology
DX: C61 Malignant neoplasm of prostate (principal); C79.51 Secondary malignant neoplasm of bone; Z79.899 Other long term (current) drug therapy
CPT/HCPCS: 36415; 80053; 85025; 96372; Q5136